=== PATIENT | male | born 1960 | race Caucasian/White ===

== ENCOUNTER 2018-08-24 18:40 | Emergency (ER) | payer MEDICARE, SELFPAY ==
[2018-08-24 18:44] VITALS: BP 144/89; PULSE 99; RESP 20; TEMP 36.9; O2SAT 99
--- NOTE | 2018-08-24 19:05 | DI.RAD_ITS ---
SYMPTOMS/DIAGNOSIS: BILATERAL RIB PAIN CHEST X-RAY, PA AND LATERAL: Comparison chest x-rays dating back to 05/12/13 were reviewed. There was also comparison with a CT scan of the chest from 05/28/15. The heart size and pulmonary vasculature appear stable and within normal limits. The left hilum appears unchanged compared with prior chest x-rays and the CT scan from 05/28/15. The lungs show no acute infiltrates, effusions or pneumothoraces. There are old healed left rib fractures present. Degenerative changes are seen in the spine. IMPRESSION: No acute pulmonary process.
--- NOTE | 2018-08-24 19:05 | DI.CT_ITS ---
SYMPTOMS/DIAGNOSIS: PAIN AT TOP OF PREVIOUS FUSION CT SCAN OF THE LUMBAR SPINE: Multiple contiguous axial images of the lumbar spine were obtained. Sagittal and coronal reformatted images were evaluated on the Siemens workstation. Comparison x-rays of the pelvis are 05/02/16 and 11/12/15. Comparison x-ray of the abdomen is 07/12/14. There are postsurgical changes with posterior fusion extending from L3 through S1. Posterior rods and pedicle screws are seen. Postlaminectomy changes are seen at L3 through L5. The right pedicle screw at L3 appears to break the cortical surface of the superior endplate of L3. Compression deformities are seen at L2 and L3. These appear present on the x- ray of the lumbar spine from 07/12/14 and the x-ray of the pelvis from 05/02/16. There does appear to be a vertical lucency in the right and inferior aspect of the L3 vertebral body (series 8 image 48 and series 7 image 23). An acute fracture cannot be excluded. No other findings to suggest an acute fracture or dislocation are seen in the lumbar spine. 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 Vacuum discs are seen at L1-L2 and L2-L3. These are present on the x-ray of the abdomen from 07/12/14 and are unchanged. Bilateral neural foraminal narrowing and central spinal canal narrowing are seen at L1-L2 and L2-L3. There is calcification of the abdominal aorta noted but no aneurysmal dilatation is seen in the visualized portions. No soft tissue masses appreciated. There is some asymmetry of the paraspinal soft tissues at the L2 level on the left. This is nonspecific. Inflammatory response or trauma cannot be excluded. IMPRESSION: 1. Lucency seen in the right and inferior aspect of the L3 vertebral body with irregularity of the inferior endplate and an acute fracture cannot be excluded. 2. Posterior spinal fusion from L3 through S1. The right L3 pedicle screw appears to break through the cortical surface of the superior endplate. This is age indeterminate. 3. Asymmetric soft tissue at the L2 vertebral body. This is nonspecific.
--- NOTE | 2018-08-24 19:06 | W.ED.GENAD ---
Discharge Plan Disposition Patient Disposition: HOME Discharge Details Chief Complaint: Nk/Back Pain Clinical Impression: Failed hardware, Failure of spinal fusion, Spinal fracture Primary Care Provider: [facility] ED Provider: Jose Daniel Quesada Home Meds and New Rx's Prescriptions: Continue omeprazole 20 MG capsule,delayed release(DR/EC) 20 mg PO BID RF: 0 sildenafil [Viagra] 100 MG tablet 100 mg PO PRN PRNRF: 0 albuterol sulfate [ProAir HFA] 8.5 GM HFA aerosol inhaler 2 puff Inhalation .BID PRN RF: 0 lisinopril 5 MG tablet 20 mg PO DAILY RF: 0 aspirin [Aspir-81] 81 MG tablet,delayed release (DR/EC) 81 mg PO DAILY RF: 0 hydromorphone [Dilaudid] 2 MG tablet 4 mg PO Q6H PRN PRNRF: 0 pregabalin [Lyrica] 50 MG capsule 100 mg PO DAILY RF: 0 doxycycline hyclate [Doryx] 100 MG tablet,delayed release (DR/EC) 100 mg PO DAILY RF: 0 hydroxyzine HCl 25 mg Tablet 25 mg PO TID RF: 0 olanzapine [Zyprexa] 5 MG tablet 5 mg PO DAILY RF: 0 simvastatin 20 MG tablet 20 mg PO QPM RF: 0 docusate sodium [Stool Softener] 250 MG capsule 250 mg PO BID RF: 0 Discharge Instructions Additional Instructions: Please limit your activities until you are able to follow-up with a spinal specialist. Do not perform any activities that worsen pain. Please follow-up with neurosurgery at [facility]. Call for an appointment: . Please contact your primary care physician to arrange follow-up. Return to the ER for any worsening or new concerning symptoms. Referrals: [facility] [Primary Care Provider] - Discharge Data Discharge Date/Time-TO BE ENTERED AT DEPARTURE: 08/24/18 22:31 Medical Decision Making <Ellis Mendoza MD - Last Filed: 08/25/18 20:00> 58-year-old male with chronic low back pain, status post lumbar fusion in the early . He presents stating of the abrupt onset of lumbar pain and subsequent bilateral rib pain after arching his back this morning. Not have incontinence, motor weakness, numbness or tingling. He is ambulatory as per routine with a walker. Patient has mildly elevated pulse, his exam is otherwise notable for tenderness in the midline of the lumbar spine just above the previous surgical repair. Differential diagnosis includes scar tissue disruption, acute exacerbation of chronic back pain, fracture or bony compression above the previous fixation. He has history of osteopenia and previous occult rib fractures. Therefore, patient referred for chest x-ray to rule out occult rib fracture as well as CT of the lumbar spine to evaluate for fracture or hardware disruption. He is given parenteral analgesia <Jose Daniel Quesada MD - Last Filed: 08/24/18 22:12> Chest x-ray interpreted by radiology: Old left-sided rib fractures and rib deformities noted, left retrocardiac opacities could represent atelectasis or infection. CT of the lumbar spine interpreted by radiology: There is posterior fusion of L3-S1. The right L3 screw appears to break through the superior endplate cortex. In absence of prior imaging, I cannot determine if this is acute or chronic finding. There is an age-indeterminate compression deformity involving the vertebral body L2. Gas is noted in the disc space above and below L2 vertebral body. This can be seen secondary to vacuum phenomena or infection in the appropriate clinical setting. Endplate irregularities are noted. Discitis osteomyelitis is not excluded. There is asymmetric paraspinal soft tissue prominence on the left, incompletely imaged. A paraspinal psoas hematoma or infection is not excluded. There is irregularity within the right iliac bone iliac wing which could represent a sequelae of old trauma or bone harvesting. Areas of disc space narrowing central canal stenosis and bilateral neuroforaminal narrowing. Disc bulges. Patient reassessed. He has no cough or fever. Symptoms were sudden onset today as noted by Dr. Mendoza. Patient notes no new neuro deficits and denies any new numbness, weakness, tingling, or bowel or bladder dysfunction today. Pain is well controlled and at his baseline. Orthopedics at [facility] not available for consultation. I called and spoke with spinal surgeon recreation facility manager at [facility], Dr. Castañeda. I sent CT images for review and described radiology findings as reported to me. I reviewed the patient history and presentation. After reviewing CT, Dr. Castañeda recommended discharge with outpatient follow-up in clinic. I reviewed results and discuss treatment plan with the patient. Patient understands importance of timely follow-up. He also understands he should return to the ER immediately should he have any new or worsening concerning symptoms. HPI <Ellis Mendoza MD - Last Filed: 08/25/18 20:00> General Mode of arrival: ambulatory. Date/Time Provider Initiated Documentation: 08/24/18 18:41. Limitations to Documentation: no limitations. Information obtained by: patient. History of Present Illness 58 year old M presents to the emergency department with the chief complaint of Back pain, described as severe, Quality is described as aching, and is localized to the back. Patient reports no radiation. Patient started experiencing this hour(s) and it has been constant. Medication improves symptom(s), Patient notes chest pain; denies shortness of breath. HPI Narrative: 58-year-old male presents from home complaining of the abrupt onset of mid line lumbar pain at the top of previous fusion. He states he arched his back while sitting in his recliner and had abrupt onset of a pop and persistent, constant, severe pain that is nonradiating. It is also associated with bilateral rib discomfort that is worse with movement and similar to previous fractures patient does not have shortness of breath. He recently has been well. He denies numbness, tingling, weakness. Related Data Home Medications Medication Instructions Recorded Confirmed omeprazole 20 mg PO BID 01/04/13 08/24/18 albuterol sulfate [ProAir HFA] 2 puff INHALATION .BID PRN 05/12/13 08/24/18 sildenafil [Viagra] 100 mg PO PRN PRN 05/12/13 08/24/18 lisinopril 20 mg PO DAILY 08/16/13 08/24/18 aspirin [Aspir-81] 81 mg PO DAILY 09/18/14 08/24/18 hydromorphone [Dilaudid] 4 mg PO Q6H PRN PRN 02/17/15 08/24/18 pregabalin [Lyrica] 100 mg PO DAILY 06/23/15 08/24/18 docusate sodium [Stool Softener] 250 mg PO BID 05/29/17 08/24/18 olanzapine [Zyprexa] 5 mg PO DAILY 05/29/17 08/24/18 simvastatin 20 mg PO QPM 05/29/17 08/24/18 doxycycline hyclate [Doryx] 100 mg PO DAILY 10/12/17 08/24/18 hydroxyzine HCl 25 mg PO TID 08/24/18 08/24/18 Allergies Allergy/AdvReac Type Severity Reaction Status Date / Time morphine AdvReac Severe Psychosis Unverified 08/24/18 18:50 codeine [Codeine] AdvReac Intermediate Nausea Unverified 08/24/18 18:50 gabapentin AdvReac Mild dries his Unverified 08/24/18 18:50 eyes and mouth too much General Stated Complaint: Nk/Back Pain GIANFRANCO: 3 Review of Systems <Ellis Mendoza MD - Last Filed: 08/25/18 20:00> Review of Systems 8 systems reviewed and otherwise neg Exam <Ellis Mendoza MD - Last Filed: 08/25/18 20:00> Narrative Exam Narrative: GEN: awake, alert, oriented 3. Pleasant, well groomed, interactive. HEAD: Normocephalic, atraumatic ENT: Mucous membranes moist, oropharynx unremarkable, External ear exam unremarkable EYES: PERRL, EOMI NECK: Full ROM, no BA, no menigismus CHEST/RESP: Nontender, clear to auscultation bilateral, no wheeze/rhonchi/rales CARDIOVASCULAR: RRR, no murmur, rub alesha. 2+ Rad pulse bilateral ABDOMEN: Soft, nontender, no mass. +Bowel sounds BACK: Lumbar midline healed surgical incision with point tenderness present at top of previous repair. EXT: Full ROM, no edema, no rash. Sensation intact including saddle distribution Neuro: Grossly normal neurologic exam, conversant, interactive. Psych: Speech fluent, thoughts congruent, affect normal Course <Ellis Mendoza MD - Last Filed: 08/25/18 20:00> Vital Signs Temperature 36.9 C 08/24/18 18:44 Pulse 99 H 08/24/18 18:44 Respiratory Rate 20 08/24/18 18:44 Blood Pressure 144/89 H 08/24/18 18:44 Pulse Oximetry 99 08/24/18 18:44 Temperature 36.9 C 08/24/18 18:44 Temperature Source Temporal Artery Scan 08/24/18 18:44 Pulse 99 H 08/24/18 18:44 Respiratory Rate 20 08/24/18 18:44 Respiratory Effort 08/24/18 18:44 Blood Pressure 144/89 H 08/24/18 18:44 Blood Pressure Position Sitting 08/24/18 18:44 Pulse Oximetry 99 08/24/18 18:44 Oxygen Delivery Method Room Air 08/24/18 18:44 Oxygen Flow Rate 0 08/24/18 18:44 Pain Level 10 08/24/18 18:48 Sign Out <Ellis Mendoza MD - Last Filed: 08/25/18 20:00> Sign Out Data: Sign Out Comment: Please followup CT and XR result Last updated by Ellis Mendoza MD at 08/24/18 19:48
--- NOTE | 2018-08-24 19:12 | ED.GENADUL_ITS ---
Discharge Plan Disposition Patient Disposition: HOME Discharge Details Chief Complaint: Nk/Back Pain Clinical Impression: Failed hardware, Failure of spinal fusion, Spinal fracture Primary Care Provider: [facility] ED Provider: Jose Daniel Quesada Home Meds and New Rx's Prescriptions: Continue omeprazole 20 MG capsule,delayed release(DR/EC) 20 mg PO BID RF: 0 sildenafil [Viagra] 100 MG tablet 100 mg PO PRN PRNRF: 0 albuterol sulfate [ProAir HFA] 8.5 GM HFA aerosol inhaler 2 puff Inhalation .BID PRN RF: 0 lisinopril 5 MG tablet 20 mg PO DAILY RF: 0 aspirin [Aspir-81] 81 MG tablet,delayed release (DR/EC) 81 mg PO DAILY RF: 0 hydromorphone [Dilaudid] 2 MG tablet 4 mg PO Q6H PRN PRNRF: 0 pregabalin [Lyrica] 50 MG capsule 100 mg PO DAILY RF: 0 doxycycline hyclate [Doryx] 100 MG tablet,delayed release (DR/EC) 100 mg PO DAILY RF: 0 hydroxyzine HCl 25 mg Tablet 25 mg PO TID RF: 0 olanzapine [Zyprexa] 5 MG tablet 5 mg PO DAILY RF: 0 simvastatin 20 MG tablet 20 mg PO QPM RF: 0 docusate sodium [Stool Softener] 250 MG capsule 250 mg PO BID RF: 0 Discharge Instructions Additional Instructions: Please limit your activities until you are able to follow-up with a spinal specialist. Do not perform any activities that worsen pain. Please follow-up with neurosurgery at [facility]. Call for an appointment: . Please contact your primary care physician to arrange follow-up. Return to the ER for any worsening or new concerning symptoms. Referrals: [facility] [Primary Care Provider] - Discharge Data Discharge Date/Time-TO BE ENTERED AT DEPARTURE: 08/24/18 22:31 Medical Decision Making <Ellis Mendoza MD - Last Filed: 08/25/18 20:00> 58-year-old male with chronic low back pain, status post lumbar fusion in the early . He presents stating of the abrupt onset of lumbar pain and subsequent bilateral rib pain after arching his back this morning. Not have incontinence, motor weakness, numbness or tingling. He is ambulatory as per routine with a walker. Patient has mildly elevated pulse, his exam is otherwise notable for tenderness in the midline of the lumbar spine just above the previous surgical repair. Differential diagnosis includes scar tissue disruption, acute exacerbation of chronic back pain, fracture or bony compression above the previous fixation. He has history of osteopenia and previous occult rib fractures. Therefore, patient referred for chest x-ray to rule out occult rib fracture as well as CT of the lumbar spine to evaluate for fracture or hardware disruption. He is given parenteral analgesia <Jose Daniel Quesada MD - Last Filed: 08/24/18 22:12> Chest x-ray interpreted by radiology: Old left-sided rib fractures and rib deformities noted, left retrocardiac opacities could represent atelectasis or infection. CT of the lumbar spine interpreted by radiology: There is posterior fusion of L3 -S1. The right L3 screw appears to break through the superior endplate cortex. In absence of prior imaging, I cannot determine if this is acute or chronic finding. There is an age-indeterminate compression deformity involving the vertebral body L2. Gas is noted in the disc space above and below L2 vertebral body. This can be seen secondary to vacuum phenomena or infection in the appropriate clinical setting. Endplate irregularities are noted. Discitis osteomyelitis is not excluded. There is asymmetric paraspinal soft tissue prominence on the left, incompletely imaged. A paraspinal psoas hematoma or infection is not excluded. There is irregularity within the right iliac bone iliac wing which could represent a sequelae of old trauma or bone harvesting. Areas of disc space narrowing central canal stenosis and bilateral neuroforaminal narrowing. Disc bulges. Patient reassessed. He has no cough or fever. Symptoms were sudden onset today as noted by Dr. Mendoza. Patient notes no new neuro deficits and denies any new numbness, weakness, tingling, or bowel or bladder dysfunction today. Pain is well controlled and at his baseline. Orthopedics at [facility] not available for consultation. I called and spoke with spinal surgeon automation control technician at [place], Dr. Castañeda. I sent CT images for review and described radiology findings as reported to me. I reviewed the patient history and presentation. After reviewing CT, Dr. Castañeda recommended discharge with outpatient follow-up in clinic. I reviewed results and discuss treatment plan with the patient. Patient understands importance of timely follow-up. He also understands he should return to the ER immediately should he have any new or worsening concerning symptoms. HPI <Ellis Mendoza MD - Last Filed: 08/25/18 20:00> General Mode of arrival: ambulatory . Date/Time Provider Initiated Documentation: 08/24/18 18:41 . Limitations to Documentation: no limitations . Information obtained by: patient . History of Present Illness 58 year old M presents to the emergency department with the chief complaint of Back pain, described as severe, Quality is described as aching, and is localized to the back. Patient reports no radiation. Patient started experiencing this hour(s) and it has been constant. Medication improves symptom(s), Patient notes chest pain; denies shortness of breath. HPI Narrative: 58-year-old male presents from home complaining of the abrupt onset of mid line lumbar pain at the top of previous fusion. He states he arched his back while sitting in his recliner and had abrupt onset of a pop and persistent, constant, severe pain that is nonradiating. It is also associated with bilateral rib discomfort that is worse with movement and similar to previous fractures patient does not have shortness of breath. He recently has been well. He denies numbness, tingling, weakness. Related Data Home Medications Medication Instructions Recorded Confirmed omeprazole 20 mg PO BID 01/04/13 08/24/18 albuterol sulfate [ProAir HFA] 2 puff INHALATION .BID PRN 05/12/13 08/24/18 sildenafil [Viagra] 100 mg PO PRN PRN 05/12/13 08/24/18 lisinopril 20 mg PO DAILY 08/16/13 08/24/18 aspirin [Aspir-81] 81 mg PO DAILY 09/18/14 08/24/18 hydromorphone [Dilaudid] 4 mg PO Q6H PRN PRN 02/17/15 08/24/18 pregabalin [Lyrica] 100 mg PO DAILY 06/23/15 08/24/18 docusate sodium [Stool Softener] 250 mg PO BID 05/29/17 08/24/18 olanzapine [Zyprexa] 5 mg PO DAILY 05/29/17 08/24/18 simvastatin 20 mg PO QPM 05/29/17 08/24/18 doxycycline hyclate [Doryx] 100 mg PO DAILY 10/12/17 08/24/18 hydroxyzine HCl 25 mg PO TID 08/24/18 08/24/18 Allergies Allergy/AdvReac Type Severity Reaction Status Date / Time morphine AdvReac Severe Psychosis Unverified 08/24/18 18:50 codeine [Codeine] AdvReac Intermediate Nausea Unverified 08/24/18 18:50 gabapentin AdvReac Mild dries his Unverified 08/24/18 18:50 eyes and mouth too much General Stated Complaint: Nk/Back Pain GIANFRANCO: 3 Review of Systems <Ellis Mendoza MD - Last Filed: 08/25/18 20:00> Review of Systems 8 systems reviewed and otherwise neg Exam <Ellis Mendoza MD - Last Filed: 08/25/18 20:00> Narrative Exam Narrative: GEN: awake, alert, oriented 3. Pleasant, well groomed, interactive. HEAD: Normocephalic, atraumatic ENT: Mucous membranes moist, oropharynx unremarkable, External ear exam unremarkable EYES: PERRL, EOMI NECK: Full ROM, no BA, no menigismus CHEST/RESP: Nontender, clear to auscultation bilateral, no wheeze/rhonchi/rales CARDIOVASCULAR: RRR, no murmur, rub alesha. 2+ Rad pulse bilateral ABDOMEN: Soft, nontender, no mass. +Bowel sounds BACK: Lumbar midline healed surgical incision with point tenderness present at top of previous repair. EXT: Full ROM, no edema, no rash. Sensation intact including saddle distribution Neuro: Grossly normal neurologic exam, conversant, interactive. Psych: Speech fluent, thoughts congruent, affect normal Course <Ellis Mendoza MD - Last Filed: 08/25/18 20:00> Vital Signs Temperature 36.9 C 08/24/18 18:44 Pulse 99 H 08/24/18 18:44 Respiratory Rate 20 08/24/18 18:44 Blood Pressure 144/89 H 08/24/18 18:44 Pulse Oximetry 99 08/24/18 18:44 Temperature 36.9 C 08/24/18 18:44 Temperature Source Temporal Artery Scan 08/24/18 18:44 Pulse 99 H 08/24/18 18:44 Respiratory Rate 20 08/24/18 18:44 Respiratory Effort 08/24/18 18:44 Blood Pressure 144/89 H 08/24/18 18:44 Blood Pressure Position Sitting 08/24/18 18:44 Pulse Oximetry 99 08/24/18 18:44 Oxygen Delivery Method Room Air 08/24/18 18:44 Oxygen Flow Rate 0 08/24/18 18:44 Pain Level 10 08/24/18 18:48 Sign Out <Ellis Mendoza MD - Last Filed: 08/25/18 20:00> Sign Out Data: Sign Out Comment: Please followup CT and XR result Last updated by Ellis Mendoza MD at 08/24/18 19:48
[2018-08-24] MEDS: HYDROmorphone 2 MG/ML VIAL IM (19:20)
--- NOTE | 2018-08-24 20:22 | DI.VRAD_ITS ---
EXAM: XR Chest, 2 Views EXAM DATE/TIME: 08/24/2018 7:46 PM CLINICAL HISTORY: 58 years old, male; Pain; Other: Bilat rib pain TECHNIQUE: XR of the chest, 2 views. COMPARISON: CR CHEST 2 VIEWS PA,LAT 10/12/2017 2:13 PM FINDINGS: Lungs: Seen only on the frontal radiograph are left retrocardiac opacities that could represent atelectasis or infection. Pleural space: Unremarkable. No pleural effusion. No pneumothorax. Heart/Mediastinum: No cardiomegaly. The mediastinal contours are unchanged. There is persistent asymmetric left hilar prominence which can be seen with prominent vascular structures or lymphadenopathy/lesion. If indicated, CT scan could be considered. Bones/joints: Skeletal degenerative changes. Old left-sided rib fractures and rib deformities are again seen. IMPRESSION: 1. Seen only on the frontal radiograph left retrocardiac opacities that could represent atelectasis or infection. 2. Old left-sided rib fractures and rib deformities are again seen. 3.There is persistent asymmetric left hilar prominence which can be seen with prominent vascular structures or lymphadenopathy/lesion. If indicated, contrast enhanced CT scan could be considered to further evaluate this or the patient's pain symptoms. 4. Other findings as above. Dictated and Authenticated by: Adwoa Blanco MD. Ordering:JACQUELINE COCNEPCION MD
--- NOTE | 2018-08-24 21:00 | DI.VRAD_ITS ---
EXAM: CT Lumbar Spine Without Intravenous Contrast EXAM DATE/TIME: 08/24/2018 7:07 PM CLINICAL HISTORY: 58 years old, male; Pain; Other: Pain at top of existing fusion; Prior surgery TECHNIQUE: Axial computed tomography images of the lumbar spine without intravenous contrast. Coronal and sagittal reformatted images were created and reviewed. COMPARISON: No relevant prior studies available. FINDINGS: Limitations: This is a compromised examination secondary to streak artifact and quantum mottle. Vertebrae: Skeletal degenerative changes are noted. Osteophytosis is seen. There is no definite listhesis. There is scoliosis. There is irregularity within the right iliac bone/iliac wing which could represent a sequela of old trauma or bone harvesting. Other types of abnormalities are not excluded. Correlation suggested. There is posterior fusion of L3-S1. The right L3 screw on series 8 image 47 appears to break through the superior endplate cortex. In the absence of prior imaging, I cannot determine if this is an acute or chronic finding. There is an age-indeterminate compression deformity involving vertebral body L2. Gas is noted in the disc space above and below the L2 vertebral body. This can be seen secondary to vacuum phenomenon or infection in the appropriate clinical setting. Endplate irregularities are noted. Discitis/osteomyelitis is not excluded. Discs/Spinal canal/Neural foramina: There is disc space narrowing at L1-2 and L2-3 with central canal stenosis and bilateral neuroforaminal narrowing. There is a disc osteophyte complex at L2-3. Disc bulges are also seen at L3-4, L4-5, and L5-S1. If the patient is symptomatic, MRI would be beneficial. Soft tissues: Vascular calcifications are seen. There is asymmetric paraspinal soft tissue prominence on the left, incompletely imaged (series 4 image 21). A paraspinal/psoas hematoma is not excluded. A dedicated CT scan of the abdomen and pelvis could be considered. IMPRESSION: 1. There is posterior fusion of L3-S1. The right L3 screw appears to break through the superior endplate cortex. In the absence of prior imaging, I cannot determine if this is an acute or chronic finding. 2. There is an age-indeterminate compression deformity involving vertebral body L2. Gas is noted in the disc space above and below the L2 vertebral body. This can be seen secondary to vacuum phenomenon or infection in the appropriate clinical setting. Endplate irregularities are noted. Discitis/osteomyelitis is not excluded. MRI could be considered. 3.There is asymmetric paraspinal soft tissue prominence on the left, incompletely imaged (series 4 image 21). A paraspinal/psoas hematoma or infection is not excluded. 4. There is irregularity within the right iliac bone/iliac wing which could represent a sequela of old trauma or bone harvesting. Other types of abnormalities are not excluded. Correlation suggested. 5. Areas of disc space narrowing, central canal stenosis, and bilateral neuroforaminal narrowing as described. Disc bulges as described. If the patient is symptomatic, MRI would be beneficial. Other findings as above. THIS REPORT CONTAINS FINDINGS THAT MAY BE CRITICAL TO PATIENT CARE. The findings were verbally communicated via telephone conference with Dr. Quesada at 8:59 PM EDT on 08/24/2018. The findings were acknowledged and understood. Dictated and Authenticated by: Adwoa Blanco MD. Ordering:JACQUELINE CONCEPCION MD
[2018-08-24 22:32] VITALS: BP 115/91; PULSE 90; RESP 18; TEMP 37.1; O2SAT 97
--- NOTE | 2018-08-27 08:34 | CMPROGNOTE_ITS ---
Care Management Progress Note 08/27-Dr. Cony Quesada requested PCP (NM) f/u gloria for failed spinal fusion, spinal fracture. Called [facility] this morning and he states he is calling his providers office, ( [facility]) for f/u appt. Once he gets his appt, he states he will call this CM back with a fax number to fax his ED reports to. Boogie has my contact information if further assistance is needed.
--- NOTE | 2018-08-27 17:42 | NUR.NOTE ---
Nursing Note: At the request of Neurology, [facility] I faxed to them the CT and xray reports. Also, the MD report. . Janet Larson
== END 2018-08-24 22:31 | disposition home or self-care (01) ==
PROVIDERS: Emergency Provider Student in an Organized Health Care Education/Training Program
DX: T84.216A Breakdown (mechanical) of internal fixation device of vertebrae, initial encounter (principal); R93.7 Abnormal findings on diagnostic imaging of other parts of musculoskeletal system; M43.27 Fusion of spine, lumbosacral region; Z98.1 Arthrodesis status; R07.81 Pleurodynia; X50.9XXA Other and unspecified overexertion or strenuous movements or postures, initial encounter; Y83.1 Surgical operation with implant of artificial internal device as the cause of abnormal reaction of the patient, or of later complication, without mention of misadventure at the time of the procedure; I10 Essential (primary) hypertension; E11.9 Type 2 diabetes mellitus without complications; Z79.4 Long term (current) use of insulin
CPT/HCPCS: 96372; 99284; 71046; 72131

== ENCOUNTER 2019-02-24 10:17 | Emergency (ER) | payer MEDICARE, SELFPAY ==
[2019-02-24 10:21] VITALS: BP 126/84; PULSE 85; RESP 16; TEMP 36.2; O2SAT 100
--- NOTE | 2019-02-24 10:31 | W.ED.GENAD ---
Discharge Plan Disposition Patient Disposition: HOME Condition: Stable Discharge Details Chief Complaint: Orthopedic Clinical Impression: Left wrist sprain Primary Care Provider: [place] ED Provider: Monique Brooks Home Meds and New Rx's Prescriptions: Continued omeprazole 20 MG capsule,delayed release(DR/EC) 20 mg PO BID RF: 0 sildenafil [Viagra] 100 MG tablet 100 mg PO PRN PRNRF: 0 albuterol sulfate [ProAir HFA] 8.5 GM HFA aerosol inhaler 2 puff Inhalation .BID PRN RF: 0 lisinopril 5 MG tablet 20 mg PO DAILY RF: 0 aspirin [Aspir-81] 81 MG tablet,delayed release (DR/EC) 81 mg PO DAILY RF: 0 hydromorphone [Dilaudid] 2 MG tablet 4 mg PO Q6H PRN PRNRF: 0 Lyrica 50 MG capsule 100 mg PO DAILY RF: 0 doxycycline hyclate [Doryx] 100 MG tablet,delayed release (DR/EC) 100 mg PO DAILY RF: 0 hydroxyzine HCl 25 mg Tablet 25 mg PO TID RF: 0 olanzapine [Zyprexa] 5 MG tablet 5 mg PO DAILY RF: 0 simvastatin 20 MG tablet 20 mg PO QPM RF: 0 docusate sodium [Stool Softener] 250 MG capsule 250 mg PO BID RF: 0 Discharge Instructions Instructions: Wrist Sprain (ED) Additional Instructions: Encourage rest, ice, elevation. Continue with pain medication as previously prescribed. Continue with brace while pain persists. Keep upcoming appointment with primary care. Seek care urgenly once again with redness, warmth, increased pain, fevers/chills or other new/worsening symptoms. Referrals: [facility] [Primary Care Provider] - Medical Decision Making Patient is a RHD 58 year old male presenting today with c/c of atraumatic left wrist pain and swelling. Ambulates with walker, puts large amount of pressure on this area. He states that he noted discomfort and small amount of swelling yesterday but noted the swelling to be increased this morning. No erythema, warmth, drainage, break in the skin. Denies systemic illness such as fevers/chills, generalized arthralgias or myalgias. Has had surgery for fx repair with 3 plates places several years ago. Incision have healed well. He reports chronic ulnar sided hand tingling, states this has increased. 2 point intact on exam. Limited ROM but patient unclear if this is chronic. Plan to obtain XR. XR reviewed by radiologist: FINDINGS: Bones/joints: Plate and screw fixation distal radius and distal ulna. Fixation at the radiocarpal articulation. Diffuse bone demineralization. No acute fracture. Soft tissues: Soft tissue swelling medial to the distal ulna. IMPRESSION: 1. Plate and screw fixation distal radius and distal ulna. Fixation at the radiocarpal articulation. 2. Diffuse bone demineralization. 3. No acute fracture. 4. Soft tissue swelling medial to the distal ulna. Discussed findings iwth the patient. Advised likely overuse injury. Encouraged rest, ice, elevation. Fitted with splint. Advised on new/worsening symptoms and when to seek care urgently once again. All questions and concerns were addressed, he isin agreement with this plan. HPI General Mode of arrival: ambulatory (ambulates with walker at baseline). Date/Time Provider Initiated Documentation: 02/24/19 10:18. Limitations to Documentation: no limitations. Information obtained by: patient and RN notes reviewed. History of Present Illness 58 year old M presents to the emergency department with the chief complaint of atraumatic left wrist pain, described as moderate, with intensity rated at 8. Quality is described as aching, and is localized to the left and upper extremity. Patient reports no radiation. Patient started experiencing this day(s) (1) and it has been constant. Immobilization improves symptom(s), Movement worsens symptoms . Patient notes denies chest pain, cough, fever/chills, rash and weakness. Patient did receive the following treatments prior to arrival, other (hydromorphone) Related Data Home Medications Medication Instructions Recorded Confirmed omeprazole 20 mg PO BID 01/04/13 02/24/19 albuterol sulfate [ProAir HFA] 2 puff INHALATION .BID PRN 05/12/13 08/24/18 sildenafil [Viagra] 100 mg PO PRN PRN 05/12/13 02/24/19 lisinopril 20 mg PO DAILY 08/16/13 02/24/19 aspirin [Aspir-81] 81 mg PO DAILY 09/18/14 02/24/19 hydromorphone [Dilaudid] 4 mg PO Q6H PRN PRN 02/17/15 02/24/19 Lyrica 100 mg PO DAILY 06/23/15 02/24/19 docusate sodium [Stool Softener] 250 mg PO BID 05/29/17 02/24/19 olanzapine [Zyprexa] 5 mg PO DAILY 05/29/17 02/24/19 simvastatin 20 mg PO QPM 05/29/17 02/24/19 doxycycline hyclate [Doryx] 100 mg PO DAILY 10/12/17 02/24/19 hydroxyzine HCl 25 mg PO TID 08/24/18 02/24/19 Allergies Allergy/AdvReac Type Severity Reaction Status Date / Time morphine AdvReac Severe Psychosis Unverified 02/24/19 10:25 codeine [Codeine] AdvReac Intermediate Nausea Unverified 02/24/19 10:25 gabapentin AdvReac Mild dries his Unverified 02/24/19 10:25 eyes and mouth too much General Stated Complaint: Orthopedic GIANFRANCO: 4 Review of Systems Constitutional Reports as per HPI, Denies chills, Denies fever(s), Denies headache(s) and Denies weakness ENT Denies headache(s) and Denies neck pain Cardiovascular Reports as per HPI, Denies dyspnea and Denies dyspnea on exertion Respiratory Reports as per HPI, Denies cough, Denies dyspnea and Denies dyspnea on exertion Musculoskeletal Reports as per HPI, Denies myalgias, Reports joint swelling, Reports limited range of motion, Denies muscle cramps, Denies muscle weakness, Denies neck pain, Denies radiating pain into limb and Reports tingling (tingling ulnar side of hand, worse since swelling, chronic onset) Integumentary/Breasts Reports as per HPI, Denies rash and Denies wounds Neurologic Reports as per HPI, Denies headache(s), Reports tingling (tingling ulnar side of hand, worse since swelling, chronic onset), Denies paresthesias and Denies weakness [facility] Medical History Acne (Acute) Hip fracture (Acute) Mood changes (Acute) Osteopenia (Acute) Wrist fracture, closed (Acute) Wrist fracture, left (Acute) Anxiety (Chronic) High cholesterol (Chronic) Hypertension (Chronic) Social History Smoking/Tobacco Use Status: Current every day Alcohol Intake: never Drug use: Never Do you feel safe in your relationship?: Yes Exam Const General: cooperative, healthy appearing, comfortable, no acute distress, well developed and well groomed Nutritional Appearance: average body habitus and well nourished Orientation: alert and awake Resp Effort & Inspection: normal respiratory effort, able to speak in complete sentences and no respiratory distress Auscultation: clear to auscultation bilaterally Cardio Rate: regular rate Rhythm: regular rhythm Heart Sounds: S1 normal and S2 normal Skin General skin exam: no rashes or lesions noted and other (incisions healed well to ulnar, anterior and posterior wrist) Lesions: no lesions Rashes: no rashes Trauma: no lacerations or abrasions Neuro General: alert and awake Cognition: normal cognition Speech: speech normal Gait: normal gait Motor: muscle tone normal throughout Sensory Exam: no sensory deficits noted and normal double simultaneous stimulation Extrem Left upper extremity: normal capillary refill and wrist Details: tenderness, swelling and normal vascular exam; inspection abnormal, ROM abnormal, no unusual warmth (no erythema, warmth, break in skin), no ecchymosis, no crepitus, no foreign bodies and no deformity; ROM limited (FINDINGS: Bones/joints: See Soft Tissues Finding. Soft tissues: The soft ti), no cyanosis and joint enlargement noted (ulnar anterior welling, well defined region) Psych Appearance: grossly normal and well kempt Mental Status: mental status grossly normal Speech and Movement: speech and movement normal Course Vital Signs Temperature 36.2 C L 02/24/19 10:21 Pulse 85 02/24/19 10:21 Respiratory Rate 16 02/24/19 10:21 Blood Pressure 126/84 02/24/19 10:21 Pulse Oximetry 100 02/24/19 10:21 Temperature 36.2 C L 02/24/19 10:21 Temperature Source Skin 02/24/19 10:21 Pulse 85 02/24/19 10:21 Respiratory Rate 16 02/24/19 10:21 Respiratory Effort Non-Labored 02/24/19 10:23 Blood Pressure 126/84 02/24/19 10:21 Pulse Oximetry 100 02/24/19 10:21 Pain Level 8 02/24/19 10:21
--- NOTE | 2019-02-24 10:37 | ED.GENADUL_ITS ---
Discharge Plan Disposition Patient Disposition: HOME Condition: Stable Discharge Details Chief Complaint: Orthopedic Clinical Impression: Left wrist sprain Primary Care Provider: [place] [place] Provider: Monique Brooks Home Meds and New Rx's Prescriptions: Continued omeprazole 20 MG capsule,delayed release(DR/EC) 20 mg PO BID RF: 0 sildenafil [Viagra] 100 MG tablet 100 mg PO PRN PRNRF: 0 albuterol sulfate [ProAir HFA] 8.5 GM HFA aerosol inhaler 2 puff Inhalation .BID PRN RF: 0 lisinopril 5 MG tablet 20 mg PO DAILY RF: 0 aspirin [Aspir-81] 81 MG tablet,delayed release (DR/EC) 81 mg PO DAILY RF: 0 hydromorphone [Dilaudid] 2 MG tablet 4 mg PO Q6H PRN PRNRF: 0 Lyrica 50 MG capsule 100 mg PO DAILY RF: 0 doxycycline hyclate [Doryx] 100 MG tablet,delayed release (DR/EC) 100 mg PO DAILY RF: 0 hydroxyzine HCl 25 mg Tablet 25 mg PO TID RF: 0 olanzapine [Zyprexa] 5 MG tablet 5 mg PO DAILY RF: 0 simvastatin 20 MG tablet 20 mg PO QPM RF: 0 docusate sodium [Stool Softener] 250 MG capsule 250 mg PO BID RF: 0 Discharge Instructions Instructions: Wrist Sprain (ED) Additional Instructions: Encourage rest, ice, elevation. Continue with pain medication as previously prescribed. Continue with brace while pain persists. Keep upcoming appointment with primary care. Seek care urgenly once again with redness, warmth, increased pain, fevers/chills or other new/worsening symptoms. Referrals: [place] [Primary Care Provider] - Medical Decision Making Patient is a RHD 58 year old male presenting today with c/c of atraumatic left wrist pain and swelling. Ambulates with walker, puts large amount of pressure on this area. He states that he noted discomfort and small amount of swelling yesterday but noted the swelling to be increased this morning. No erythema, warmth, drainage, break in the skin. Denies systemic illness such as fevers/chills, generalized arthralgias or myalgias. Has had surgery for fx repair with 3 plates places several years ago. Incision have healed well. He reports chronic ulnar sided hand tingling, states this has increased. 2 point intact on exam. Limited ROM but patient unclear if this is chronic. Plan to obtain XR. XR reviewed by radiologist: FINDINGS: Bones/joints: Plate and screw fixation distal radius and distal ulna. Fixation at the radiocarpal articulation. Diffuse bone demineralization. No acute fracture. Soft tissues: Soft tissue swelling medial to the distal ulna. IMPRESSION: 1. Plate and screw fixation distal radius and distal ulna. Fixation at the radiocarpal articulation. 2. Diffuse bone demineralization. 3. No acute fracture. 4. Soft tissue swelling medial to the distal ulna. Discussed findings iwth the patient. Advised likely overuse injury. Encouraged rest, ice, elevation. Fitted with splint. Advised on new/worsening symptoms and when to seek care urgently once again. All questions and concerns were addressed, he isin agreement with this plan. HPI General Mode of arrival: ambulatory (ambulates with walker at baseline) . Date/Time Provider Initiated Documentation: 02/24/19 10:18 . Limitations to Documentation: no limitations . Information obtained by: patient and RN notes reviewed . History of Present Illness 58 year old M presents to the emergency department with the chief complaint of atraumatic left wrist pain, described as moderate, with intensity rated at 8. Quality is described as aching, and is localized to the left and upper extremity. Patient reports no radiation. Patient started experiencing this day(s) (1) and it has been constant. Immobilization improves symptom(s), Movement worsens symptoms . Patient notes denies chest pain, cough, fever/chills, rash and weakness. Patient did receive the following treatments prior to arrival, other (hydromorphone) Related Data Home Medications Medication Instructions Recorded Confirmed omeprazole 20 mg PO BID 01/04/13 02/24/19 albuterol sulfate [ProAir HFA] 2 puff INHALATION .BID PRN 05/12/13 08/24/18 sildenafil [Viagra] 100 mg PO PRN PRN 05/12/13 02/24/19 lisinopril 20 mg PO DAILY 08/16/13 02/24/19 aspirin [Aspir-81] 81 mg PO DAILY 09/18/14 02/24/19 hydromorphone [Dilaudid] 4 mg PO Q6H PRN PRN 02/17/15 02/24/19 Lyrica 100 mg PO DAILY 06/23/15 02/24/19 docusate sodium [Stool Softener] 250 mg PO BID 05/29/17 02/24/19 olanzapine [Zyprexa] 5 mg PO DAILY 05/29/17 02/24/19 simvastatin 20 mg PO QPM 05/29/17 02/24/19 doxycycline hyclate [Doryx] 100 mg PO DAILY 10/12/17 02/24/19 hydroxyzine HCl 25 mg PO TID 08/24/18 02/24/19 Allergies Allergy/AdvReac Type Severity Reaction Status Date / Time morphine AdvReac Severe Psychosis Unverified 02/24/19 10:25 codeine [Codeine] AdvReac Intermediate Nausea Unverified 02/24/19 10:25 gabapentin AdvReac Mild dries his Unverified 02/24/19 10:25 eyes and mouth too much General Stated Complaint: Orthopedic GIANFRANCO: 4 Review of Systems Constitutional Reports as per HPI, Denies chills, Denies fever(s), Denies headache(s) and Denies weakness ENT Denies headache(s) and Denies neck pain Cardiovascular Reports as per HPI, Denies dyspnea and Denies dyspnea on exertion Respiratory Reports as per HPI, Denies cough, Denies dyspnea and Denies dyspnea on exertion Musculoskeletal Reports as per HPI, Denies myalgias, Reports joint swelling, Reports limited range of motion, Denies muscle cramps, Denies muscle weakness, Denies neck pain, Denies radiating pain into limb and Reports tingling (tingling ulnar side of hand, worse since swelling, chronic onset) Integumentary/Breasts Reports as per HPI, Denies rash and Denies wounds Neurologic Reports as per HPI, Denies headache(s), Reports tingling (tingling ulnar side of hand, worse since swelling, chronic onset), Denies paresthesias and Denies weakness [facility] Medical History Acne (Acute) Hip fracture (Acute) Mood changes (Acute) Osteopenia (Acute) Wrist fracture, closed (Acute) Wrist fracture, left (Acute) Anxiety (Chronic) High cholesterol (Chronic) Hypertension (Chronic) Social History Smoking/Tobacco Use Status: Current every day Alcohol Intake: never Drug use: Never Do you feel safe in your relationship?: Yes Exam Const General: cooperative, healthy appearing, comfortable, no acute distress, well developed and well groomed Nutritional Appearance: average body habitus and well nourished Orientation: alert and awake Resp Effort & Inspection: normal respiratory effort, able to speak in complete sentences and no respiratory distress Auscultation: clear to auscultation bilaterally Cardio Rate: regular rate Rhythm: regular rhythm Heart Sounds: S1 normal and S2 normal Skin General skin exam: no rashes or lesions noted and other (incisions healed well to ulnar, anterior and posterior wrist) Lesions: no lesions Rashes: no rashes Trauma: no lacerations or abrasions Neuro General: alert and awake Cognition: normal cognition Speech: speech normal Gait: normal gait Motor: muscle tone normal throughout Sensory Exam: no sensory deficits noted and normal double simultaneous stimulation Extrem Left upper extremity: normal capillary refill and wrist Details: tenderness, swelling and normal vascular exam; inspection abnormal, ROM abnormal, no unusual warmth (no erythema, warmth, break in skin), no ecchymosis, no crepitus, no foreign bodies and no deformity; ROM limited (FINDINGS: Bones/joints: See Soft Tissues Finding. Soft tissues: The soft ti), no cyanosis and joint enlargement noted (ulnar anterior welling, well defined region) Psych Appearance: grossly normal and well kempt Mental Status: mental status grossly normal Speech and Movement: speech and movement normal Course Vital Signs Temperature 36.2 C L 02/24/19 10:21 Pulse 85 02/24/19 10:21 Respiratory Rate 16 02/24/19 10:21 Blood Pressure 126/84 02/24/19 10:21 Pulse Oximetry 100 02/24/19 10:21 Temperature 36.2 C L 02/24/19 10:21 Temperature Source Skin 02/24/19 10:21 Pulse 85 02/24/19 10:21 Respiratory Rate 16 02/24/19 10:21 Respiratory Effort Non-Labored 02/24/19 10:23 Blood Pressure 126/84 02/24/19 10:21 Pulse Oximetry 100 02/24/19 10:21 Pain Level 8 02/24/19 10:21
--- NOTE | 2019-02-24 10:50 | DI.RAD_ITS ---
SYMPTOMS/DIAGNOSIS: ATRAUMATIC SWELLING ALONG ULNAR ASPECT LEFT WRIST: Five views. No priors. There are post surgical changes with sideplate and screws of the distal left radius and ulna. Radial carpal fixation is also noted. No evidence of hardware failure is seen. No lucencies are seen in or about the orthopedic hardware noted. No acute fracture or dislocation is seen. There is soft tissue swelling about the wrist particularly at the ulnar aspect. The bones appear osteopenic. Degenerative changes are seen at the first carpal metacarpal joint. IMPRESSION: 1. Soft tissue swelling about the wrist particularly at the ulnar aspect. 2. No acute fracture or dislocation.
--- NOTE | 2019-02-24 11:38 | DI.VRAD_ITS ---
EXAM: XR Left Wrist Complete, 3 or more Views EXAM DATE/TIME: 02/24/2019 10:31 AM CLINICAL HISTORY: 58 years old, male; Pain; Wrist; Left; Prior surgery; Surgery date: 6+ months; Additional info: Patient uses walker. Expresses concern he pushes too hard with wrists. TECHNIQUE: Imaging protocol: XR Left wrist. Views: 3 or more views. COMPARISON: No relevant prior studies available. FINDINGS: Bones/joints: Plate and screw fixation distal radius and distal ulna. Fixation at the radiocarpal articulation. Diffuse bone demineralization. No acute fracture. Soft tissues: Soft tissue swelling medial to the distal ulna. IMPRESSION: 1. Plate and screw fixation distal radius and distal ulna. Fixation at the radiocarpal articulation. 2. Diffuse bone demineralization. 3. No acute fracture. 4. Soft tissue swelling medial to the distal ulna. Dictated and Authenticated by: Diana Tony MD. Ordering:WILLY Amaya MD
== END 2019-02-24 12:15 | disposition home or self-care (01) ==
PROVIDERS: Emergency Provider Physician Assistant
DX: S63.502A Unspecified sprain of left wrist, initial encounter (principal); X50.9XXA Other and unspecified overexertion or strenuous movements or postures, initial encounter
CPT/HCPCS: 29125; 99283; 73110; 99282; L3908

== ENCOUNTER 2020-03-25 09:30 | Emergency (ER) | payer MEDICARE, SELFPAY ==
[2020-03-25 09:35] VITALS: BP 129/78; PULSE 78; RESP 20; TEMP 36.8; O2SAT 96
--- NOTE | 2020-03-25 10:00 | DI.RAD_ITS ---
EXAM: XR CHEST 2V PA LATERAL CLINICAL HISTORY: cough TECHNIQUE: 2D digital imaging was performed. COMPARISON: No exams were available for comparison FINDINGS: MEDIASTINUM: Normal. HEART: Normal. PULMONARY VASCULATURE: Normal. LUNGS: Clear. PLEURAL SPACE: No pleural effusion or pneumothorax. Bones: Old left upper rib fractures. Degenerative disc changes in the spine. OTHER FINDINGS:Normal. IMPRESSION: No acute pulmonary findings. DATA REPOSITORY: RADIATION DOSE DELIVERED:
[2020-03-25 10:21] LABS: Abs Immature Grans 0.03 k/cumm (0.0-0.09); Absolute Basophil Count 0.03 k/cumm (0.0-0.2); Absolute Eosinophil Count 0.18 k/cumm (0.0-0.7); Absolute Lymphocyte Count 2.32 k/cumm (1.2-3.4); Absolute Monocyte Count 0.73 k/cumm (0.11-0.7); Absolute Neutrophil Count 6.06 k/cumm (1.2-6.7); Basophils % 0.3; Eosinophils % 1.9; HCT 44.1 % (40.0-50.0); HGB 15.1 g/dL (13.5-17.5); Immature Grans % 0.3 %; Lymphocytes % 24.8; Mean Corp. HGB Concentration 34.2 g/dL (32.0-36.0); Mean Corpuscular Hemoglobin 29.3 pg (27.0-33.0); Mean Corpuscular Volume 85.5 fL (80-95); Mean Platelet Volume 9.7 fL (8.0-11.0); Monocytes % 7.8; Neutrophils % 64.9; Platelet Count 254 x1000/uL (130-400); RBC 5.16 m/cumm (4.50-6.00); RBC Distribution Width 13.8 % (11.8-14.1); White Blood Cell Count 9.35 k/cumm (4.4-10.8)
--- NOTE | 2020-03-25 10:34 | ED.GENADUL_ITS ---
Discharge Plan Disposition Patient Disposition: AGAINST MEDICAL ADVICE Condition: Stable Discharge Details Chief Complaint: Orthopedic Clinical Impression: Cervical radiculopathy, Chest pain Primary Care Provider: [facility],[place] ED Provider: Fiorella Lewis Home Meds and New Rx's Prescriptions: Continued omeprazole 20 MG capsule,delayed release(DR/EC) 20 mg PO BID RF: 0 sildenafil [Viagra] 100 MG tablet 100 mg PO PRN PRNRF: 0 albuterol sulfate [ProAir HFA] 8.5 GM HFA aerosol inhaler 2 puff Inhalation .BID PRN RF: 0 lisinopril 5 MG tablet 20 mg PO DAILY RF: 0 aspirin [Aspir-81] 81 MG tablet,delayed release (DR/EC) 81 mg PO DAILY RF: 0 hydromorphone [Dilaudid] 2 MG tablet 4 mg PO Q6H PRN PRNRF: 0 Lyrica 50 MG capsule 100 mg PO DAILY RF: 0 doxycycline hyclate [Doryx] 100 MG tablet,delayed release (DR/EC) 100 mg PO DAILY RF: 0 hydroxyzine HCl 25 mg Tablet 25 mg PO TID RF: 0 olanzapine [Zyprexa] 5 MG tablet 5 mg PO DAILY RF: 0 simvastatin 20 MG tablet 20 mg PO QPM RF: 0 docusate sodium [Stool Softener] 250 MG capsule 250 mg PO BID RF: 0 Discharge Instructions Instructions: Chest Pain (ED), Cervical Radiculopathy (ED) Additional Instructions: You are signing out AGAINST MEDICAL ADVICE. Please follow-up promptly with your [facility] doctor as discussed for your neck pain resulting in left arm numbness. Please speak with your [place] doctor regarding the chest pain you experienced although today's evaluation is reassuring I would recommend an outpatient stress test. Return for any worsening, concerns or alarming symptoms sooner if needed as discussed Medical Decision Making This is a 59-year-old patient presenting the emergency room for complaints of neck pain for the last 2 weeks. Patient is complaining of paresthesias through the entire left arm associated with global numbness in the left arm as well as intermittent paresthesia specifically numbness tingling through the left forearm and thumb. Patient does describe weakness when he is experiencing numbness and through the entire left arm. Patient reports these radicular symptoms are new in the last 2 weeks. Patient does have a history of 2 lumbar spine surgeries. Patient is concerned with the possibility of disc disease in his neck although has not had neck imaging in the past. Patient also describes an episode of chest pain which he noted today, nonexertional with no apparent diaphoresis, difficulty breathing with shortness of breath or wheezing. No associated nausea or vomiting. Episode lasted a few seconds then resolved. Patient has no personal history of KS however a very significant family history brother had a massive KS at 50 years old and father had KS and CHF. Patient was somewhat concerned with the possibility of numbness being related to his heart however has remained active in the last several weeks. On exam patient is very well- appearing at this time. Patient has no increase in respiratory effort. Vital signs are normal. Given patient's significant description of radicular symptoms into the left arm and complaints of neck pain neurologic exam performed which did reveal difficulty discriminating 2 points as well as inability to discriminate sharp versus dull in the left arm. Normal right arm exam. We will plan to obtain MRI of patient's cervical spine to rule out any cord impingement. We will also plan to rule out ACS given patient's recent complaints and family history. Patient agrees with this planof chest pain noted today. Care. Patient is a [facility] patient who can arrange for prompt follow-up if needed with the [facility]. Patient's initial labs are reassuring. Patient has no leukocytosis. Patient has a sodium of 133. Patient's initial troponin is normal. EKG reveals a heart rate of 95, sinus rhythm. No ST elevation KS. This was reviewed with Dr. Gage. Patient's repeat troponin is normal. Patient scheduled for MRI at 1145 however high-priority patient bumped his MRI. Patient will be imaged at 430. Patient is unwilling to stay for the remainder of his evaluation. Patient desires discharge home at this time. Patient is aware that his cardiac evaluation is reassuring however did recommend stress testing to be performed as an outpatient. Patient will [facility] with [facility] for outpatient stress testing given his family history of cardiac disease as well as complaints of resolved chest pain. Patient will follow-up for cervical concerns with PCP. Patient aware of risk and signing out AGAINST MEDICAL ADVICE without his MRI today including possible spinal cord injury or permanent disability including the possibility of . Patient is willing to assume this risk. We will follow-up promptly with his [facility] services. I had a discussion with the patient about my diagnostic/treatment plan. Patient declines plan and wishes to leave against medical advise. I reiterated my concerns to the patient and explained the risks of leaving prior to completion of workup and treatment. I specifically emphasized the possibility of life-threatening or lifestyle modifying disease that would no be appropriately treated if they leave. Patient verbalized understanding of my concerns and the potential for life threatening or lifestyle modifying disease. Patient has capacity to make informed decision. I again explained my concerns and urged the patient to stay for treatment as outlined. Patient continued to refuse. I then discussed potential less ideal alternatives to diagnostic/treatment plan as outlined and patiint refused. I recommended that the patient followup with primary care physician CORRINE or return to the Emergency Department at any timer for further treatment. HPI General Date/Time Provider Initiated Documentation: 03/25/20 09:38 . HPI Narrative: Is a 59-year-old patient presenting for complaints of neck pain which began approximately 2 weeks ago. Patient denies any traumatic injury involved. Patient reports his left arm has been going entirely numb. Patient does report intermittent numbness and tingling. Paresthesias associated involving the forearm and the first and second digit. Patient does report occasional weakness while experiencing global arm numbness. Patient reports neck pain is worse with range of motion specifically extension of the neck and flexion of the neck. Pain worse when rotating toward the left. Patient does report posterior and left-sided neck pain. Patient denies any headache or dizziness. Patient denies any ill feeling. Patient does report this morning he had an episode of transient left-sided chest pain but denies any diaphoresis, dizziness, tac hycardia, palpitations, difficulty breathing or shortness of breath or wheezing. Denies any fevers or chills recently. No cough. Patient does report a history of lumbar spinal surgery x2 in the past. Patient denies abdominal pain, nausea or vomiting. Patient does report he is continues to be quite active. Patient denies any exertional component of chest pain or noted shortness of breath when exerting recently. Patients care CVA. Patient is a smoker. Patient is a history of hypertension, history of kidney failure not on dialysis. Patient's family history includes a brother who had a massive KS at 50 and father who had KS and heart failure. Related Data Home Medications Medication Instructions Recorded Confirmed omeprazole 20 mg PO BID 01/04/13 02/24/19 albuterol sulfate [ProAir HFA] 2 puff INHALATION .BID PRN 05/12/13 08/24/18 sildenafil [Viagra] 100 mg PO PRN PRN 05/12/13 02/24/19 lisinopril 20 mg PO DAILY 08/16/13 02/24/19 aspirin [Aspir-81] 81 mg PO DAILY 09/18/14 02/24/19 hydromorphone [Dilaudid] 4 mg PO Q6H PRN PRN 02/17/15 02/24/19 Lyrica 100 mg PO DAILY 06/23/15 02/24/19 docusate sodium [Stool Softener] 250 mg PO BID 05/29/17 02/24/19 olanzapine [Zyprexa] 5 mg PO DAILY 05/29/17 02/24/19 simvastatin 20 mg PO QPM 05/29/17 02/24/19 doxycycline hyclate [Doryx] 100 mg PO DAILY 10/12/17 02/24/19 hydroxyzine HCl 25 mg PO TID 08/24/18 02/24/19 Allergies Allergy/AdvReac Type Severity Reaction Status Date / Time morphine AdvReac Severe Psychosis Unverified 03/25/20 09:41 codeine [Codeine] AdvReac Intermediate Nausea Unverified 03/25/20 09:41 gabapentin AdvReac Mild dries his Unverified 03/25/20 09:41 eyes and mouth too much General Stated Complaint: Orthopedic GIANFRANCO: 3 Review of Systems All systems reviewed & are unremarkable except as noted in HPI and below PFSH Medical History Acne (Acute) Anxiety (Chronic) Fracture of left leg (Acute) High cholesterol (Chronic) Hip fracture (Acute) Hip fracture, left (Acute) Hypertension (Chronic) Mood changes (Acute) Osteopenia (Acute) Wrist fracture, closed (Acute) Wrist fracture, left (Acute) 2012 Social History Smoking/Tobacco Use Status: Current every day Alcohol Intake: never Drug use: Never Do you feel safe in your relationship?: Yes Exam Narrative Exam Narrative: CONST: Healthy appearing patient, in no acute distress. Well hydrated. Alert and oriented. HENMT: Head nomocephalic, normal to inspection. Atraumatic. Hearing grossly normal. External ear canal no erythema or swelling. TM normal bilaterally. Nose normal to inspection. No rhinnorhea. Normal facial exam. Oral mucosa normal. Tounge normal. Dentition normal. Normal posterior oropharynx. Uvula midline. EYES: General normal appearance. Alignment normal. Eyelids normal. Conjunctiva normal. Sclera normal. PERRL. NECK: Normal visual inspection. FROM. No lymphadenopathy. Trachea midline. Posterior midline tenderness is noted of the cervical spine. Mild left-sided neck pain with palpation. CHEST: Normal insepection of the chest. RESP: Normal respiratory effort. Speaking full sentences. No cough. No wheezing. No retractions. Clear to auscaltation. Breath sound equal and present bilaterally. CARDIO: No JVD. Normal PMI. Regular Rate. Regular Rhythm. Normal peripheral pulses. GI: Normal inspection of abdomen. No distension. Soft. Nontender. Bowel sounds present in all 4 quadrants. No rebound. No gaurding. MUSCULOSKELETAL: Normal Gait. FROM of all extremities. Distal neurovascularly intact. Sensation intact distally. Left arm, full range of motion of the left arm. No focal pain with palpation. [employer] strength is intact. Pulses intact distally SKIN: Normal. Dry. No rashes. NEURO: Alert and awake. Speech clear. Left arm patient is unable to discriminate 2 points through the forearm and the hand. Patient has difficulty discerning sharp and dull in the left arm. right arm two-point discrimination without difficulty as well as sharp and dull intact. PSYCH: Normal affect. Cooperative. Course Vital Signs Vital signs: Vital Signs Temperature 36.8 C 03/25/20 09:35 Pulse 78 03/25/20 09:35 Respiratory Rate 03/25/20 09:35 Blood Pressure 129/78 03/25/20 09:35 Pulse Oximetry 96 03/25/20 09:35 Temperature 36.8 C 03/25/20 09:35 Temperature Source Skin 03/25/20 09:35 Pulse 78 03/25/20 09:35 Respiratory Rate 03/25/20 09:35 Respiratory Effort Non-Labored 03/25/20 09:43 Blood Pressure 129/78 03/25/20 09:35 Blood Pressure Position Sitting 03/25/20 09:35 Pulse Oximetry 96 03/25/20 09:35 Oxygen Delivery Method Room Air 03/25/20 09:35 Oxygen Flow Rate 0 03/25/20 09:35 Pain Level 10 03/25/20 09:35 Comment 03/25/20 09:35 Lab/Test Results Lab/Test Results: Laboratory Tests Range/Units 03/25/20 10:00 WBC (4.4-10.8) k/cumm 9.35 RBC (4.50-6.00) m/cumm 5.16 Hgb (13.5-17.5) g/dL 15.1 Hct (40.0-50.0) % 44.1 MCV (80-95) fL 85.5 MCH (27.0-33.0) pg 29.3 MCHC (32.0-36.0) g/dL 34.2 RDW (11.8-14.1) % 13.8 Plt Count (130-400) x1000/uL 254 MPV (8.0-11.0) fL 9.7 Immature Gran % % 0.3 Neutrophils % 64.9 Lymphocytes % 24.8 Monocytes % 7.8 Eosinophils % 1.9 Basophils % 0.3 Absolute Neutrophils (1.2-6.7) k/cumm 6.06 Absolute Lymphocytes (1.2-3.4) k/cumm 2.32 Absolute Monocytes (0.11-0.7) k/cumm 0.73 H Absolute Eosinophils (0.0-0.7) k/cumm 0.18 Absolute Basophils (0.0-0.2) k/cumm 0.03
[2020-03-25 10:39] LABS: ALT 25 U/L (16-63); AST 19 U/L (15-37); Albumin 3.7 g/dL (3.4-5.0); Alkaline Phosphatase 60 U/L (46-116); BUN 13 mg/dL (7-18); Bilirubin, Total 0.6 mg/dL (0.2-1.0); CREATININE 1.28 mg/dL (0.70-1.30); Calcium 9.4 mg/dL (8.5-10.1); Chloride 97 mmol/L (98-107); Estimated GFR 57.13 (mL/min/1.73m2); Glucose 149 mg/dL (74-106); Potassium 4.7 mmol/L (3.5-5.1); Sodium 133 mmol/L (136-145); Total Protein 7.9 g/dL (6.4-8.2); Troponin I < 0.05 ng/Ml (<0.06)
[2020-03-25 10:53] VITALS: BP 103/70; PULSE 87; RESP 18; TEMP 36.5; O2SAT 97
[2020-03-25 12:21] VITALS: BP 107/81; PULSE 91; RESP 20; TEMP 36.4; O2SAT 97
[2020-03-25 13:34] LABS: Troponin I < 0.05 ng/mL (<0.06)
[2020-03-25 14:47] VITALS: BP 103/63; PULSE 77; RESP 18; TEMP 36.7; O2SAT 97
== END 2020-03-25 15:00 | disposition left against medical advice (07) ==
PROVIDERS: Emergency Provider Physician Assistant
DX: M54.12 Radiculopathy, cervical region (principal); R07.9 Chest pain, unspecified; E87.1 Hypo-osmolality and hyponatremia; Z53.29 Procedure and treatment not carried out because of patient's decision for other reasons; Z82.49 Family history of ischemic heart disease and other diseases of the circulatory system; I12.9 Hypertensive chronic kidney disease with stage 1 through stage 4 chronic kidney disease, or unspecified chronic kidney disease; N18.9 Chronic kidney disease, unspecified
CPT/HCPCS: 36415; 36416; 80053; 82962; 93005; 99285; 71046; 84484; 85025; 93010

== ENCOUNTER 2020-11-02 10:39 | Emergency (ER) | payer MEDICARE, SELFPAY ==
--- NOTE | 2020-11-02 10:42 | W.ED.GENAD ---
Discharge Plan Disposition Patient Disposition: HOME Condition: Stable Discharge Details Clinical Impression: Acute exacerbation of chronic low back pain Primary Care Provider: [facility],[place] ED Provider: Shanice Gage Home Meds and New Rx's Prescriptions: Continued omeprazole 20 MG capsule,delayed release(DR/EC) 20 mg PO BID RF: 0 sildenafil [Viagra] 100 MG tablet 100 mg PO PRN PRNRF: 0 lisinopril 5 MG tablet 20 mg PO DAILY RF: 0 aspirin [Aspir-81] 81 MG tablet,delayed release (DR/EC) 81 mg PO DAILY RF: 0 hydromorphone [Dilaudid] 2 MG tablet 4 mg PO Q4H PRN PRNRF: 0 pregabalin [Lyrica] 50 MG capsule 100 mg PO DAILY RF: 0 doxycycline hyclate [Doryx] 100 MG tablet,delayed release (DR/EC) 100 mg PO DAILY RF: 0 hydroxyzine HCl 25 mg Tablet 25 mg PO TID RF: 0 olanzapine [Zyprexa] 5 MG tablet 5 mg PO DAILY RF: 0 simvastatin 20 MG tablet 20 mg PO QPM RF: 0 docusate sodium [Stool Softener] 250 MG capsule 250 mg PO BID RF: 0 cephalexin [Keflex] 500 mg Capsule 500 mg PO BID RF: 0 Discharge Instructions Instructions: Low Back Strain (ED) Additional Instructions: Alternate ice and heat to the affected area(s) several times daily for 20 minutes at a time. Take your regular medications as needed and directed for your pain. Follow-up with your regular doctors at the [place] and [facility]. Return immediately to the emergency department if you develop any worsening or new concerning symptoms. Discharge Data Discharge Date/Time-TO BE ENTERED AT DEPARTURE: 11/02/20 14:20 Discharge Physician: Shanice Gage Medical Decision Making 60-year-old male with a history of chronic back pain and former lumbar fusion, chronically on Dilaudid 4 times daily presents with worsening lower thoracic mid and right paraspinal pain after lifting a heavy bag of groceries 5 days ago. He has tenderness to palpation of his midline lower thoracic and right-sided lower thoracic paraspinal region. No evidence of trauma or cellulitis. He has no focal deficits. He is neurovascular intact. Will refer for CT thoracic and lumbar spine and give a dose of his Dilaudid. CT thoracic and lumbar spine no chronic changes and evidence of lumbar fusion but negative for acute findings. Patient reassessed and he feels better. Patient states his main concern was for follow-up considering his previous history of lumbar fusion. He has plenty of pain medication at home. Advised to follow up with the primary care doctor for re-evaluation. Usual and customary return precautions given prior to discharge. Medical Records Medical records reviewed: Yes I reviewed the patient's medical records. Imaging Data Radiologic Study: Radiologist's impression: CT THORACIC LUMBAR SPINE WO CLINICAL HISTORY: midline lower thoracic pain, r/o fx. TECHNIQUE: Imaging Protocol: Axial computed tomography images with coronal and sagittal reformatted images were created and reviewed COMPARISON: CT CT lumbar spine wo from 08/24/2018 FINDINGS: THORACIC SPINE: There is no evidence of fracture nor listhesis of the thoracic vertebral bodies. No lytic osseous lesions. Mild scoliosis convex left and multiple right-sided osteophytes are noted. There are no obvious disc herniations nor central spinal canal stenosis. No evidence of paraspinal mass. No fluid collection in the epidural and paraspinal regions. Multiple non healed left-sided rib fractures are noted. LUMBOSACRAL SPINE: Again noted is multilevel fusion L2-S1 with posterior fusion rods and bilateral intrapedicular screws at these levels. The patient hip of the intra pedicular screws relative to the superior endplates remains satisfactory and unchanged from the prior study of July 2018. Wedge compression fracture of L2 is again noted, unchanged. There is no evidence of acute lumbar vertebral fracture. There is no radiographic evidence of osteomyelitis. There is tight spinal canal stenosis at L2-3 level, similar to previous. Bone donor site in the right iliac bone is again noted. Sacroiliac joints unchanged. No new findings in the sacral canal IMPRESSION: 1. No evidence of thoracic spinal column fracture. 2. L3-S1 lumbar fusion again noted with multilevel bilateral intrapedicular screws and posterior fusion rods. There is no evidence of acute fracture thoracic spinal column. Chronic wedge fracture of L2 again noted appears unchanged July [address] scan. Hardware also appears unchanged. No new abnormal fluid collection both epidural and paraspinal. There is spinal canal stenosis again noted at L2-3 level which is 1 level above the fusion. ECG Data Attestation: I personally reviewed and interpreted this ECG (s) as follows: HPI General Mode of arrival: ambulatory. Date/Time Provider Initiated Documentation: 11/02/20 10:40. Limitations to Documentation: no limitations. Information obtained by: patient. HPI Narrative: Patient is a 60-year-old male with a history of chronic back pain and lumbar fusion who is chronically on hydromorphone 4 times daily for his chronic back pain presents with worsening right-sided lower back pain for the past 5 days after lifting a heavy bag of groceries at the grocery store. Patient states he last had a lumbar fusion in the . He states he is followed by the [place] and [facility] for his chronic pain. He states he was lifting a heavy bag of groceries at the store when he felt a sudden onset of right-sided mid back pain. He states he feels the pain is in his L3-4 region. He denies any bowel or bladder incontinence, fever, abdominal pain, saddle anesthesia, leg pain weakness or numbness. He states he is mainly here to rule out a vertebral fracture as he has pain medication at home and does not want to add any muscle relaxers to this. Related Data Home Medications Medication Instructions Recorded Confirmed omeprazole 20 mg PO BID 01/04/13 11/02/20 sildenafil [Viagra] 100 mg PO PRN PRN 05/12/13 11/02/20 lisinopril 20 mg PO DAILY 08/16/13 11/02/20 aspirin [Aspir-81] 81 mg PO DAILY 09/18/14 11/02/20 hydromorphone [Dilaudid] 4 mg PO Q4H PRN PRN 02/17/15 11/02/20 pregabalin [Lyrica] 100 mg PO DAILY 06/23/15 11/02/20 docusate sodium [Stool Softener] 250 mg PO BID 05/29/17 11/02/20 olanzapine [Zyprexa] 5 mg PO DAILY 05/29/17 11/02/20 simvastatin 20 mg PO QPM 05/29/17 11/02/20 doxycycline hyclate [Doryx] 100 mg PO DAILY 10/12/17 11/02/20 hydroxyzine HCl 25 mg PO TID 08/24/18 11/02/20 cephalexin [Keflex] 500 mg PO BID 11/02/20 11/02/20 Allergies Allergy/AdvReac Type Severity Reaction Status Date / Time morphine AdvReac Severe Psychosis Unverified 11/02/20 10:59 codeine [Codeine] AdvReac Intermediate Nausea Unverified 11/02/20 10:59 gabapentin AdvReac Mild dries his Unverified 11/02/20 10:59 eyes and mouth too much General GIANFRANCO: 3 Review of Systems All systems reviewed & are unremarkable except as noted in HPI and below Constitutional Constitutional: Reports as per HPI, Denies chills and Denies fever(s) Eyes Eyes: Denies blurry vision ENT Ears, Nose, Mouth, and Throat: Denies dizziness, Denies sore throat and Denies throat swelling Cardiovascular Cardiovascular: Denies chest pain and Denies dyspnea Respiratory Respiratory: Denies cough and Denies dyspnea Gastrointestinal Gastrointestinal: Denies abdominal pain, Denies diarrhea and Denies vomiting Genitourinary Genitourinary: Denies hematuria and Denies dysuria Musculoskeletal Musculoskeletal: Reports back pain and Denies numbness Integumentary/Breasts Skin/Breast: Denies lesions and Denies rash Neurologic Neurologic: Denies dizziness, Denies localized weakness and Denies numbness Allergic/Immunologic Allergic/Immunologic: Denies throat swelling [facility] Medical History (Updated 11/02/20 @ 14:07 by Shanice Gage DO) Acne Anxiety Fracture of left leg High cholesterol Hip fracture Hip fracture, left Hypertension Mood changes Osteopenia Wrist fracture, closed Wrist fracture, left 2013 Surgical History History of appendectomy History of hernia repair Hx of tonsillectomy Social History Smoking/Tobacco Use Status: Current every day Smoking risk assessment performed?: Yes Alcohol Intake: never Drug use: Never Do you feel safe at home: Yes Do you feel safe in your relationship?: Yes Exam Const General: cooperative and no acute distress Nutritional Appearance: obese centrally obese Orientation: alert, awake and oriented x3 HENMT Head: normal to inspection Face and sinus: normal facial exam Eyes General: appearance normal, both eyes and all related structures EOM: EOM intact bilaterally Neck Neck: normal visual inspection and No submandibular swelling Lymphatic: no lymphadenopathy noted Chest Chest: normal inspection of the chest and no tenderness Resp Effort & Inspection: normal respiratory effort and able to speak in complete sentences Auscultation: clear to auscultation bilaterally Cardio Rate: regular rate Rhythm: regular rhythm GI Inspection: normal to inspection Palpation: soft, not firm, not rigid and nontender Auscultation: normal bowel sounds Back/Spine/Pelvis Thoracic/Lumbar Spine: paraspinal tenderness (R lower thoracic), thoracic spinal tenderness and No lumbar spinal tenderness Pelvis: no pain with anterior-posterior compression Skin General skin exam: no rashes or lesions noted Neuro General: patient alert, patient awake and patient oriented x3 Cognition: normal cognition Speech: speech normal Motor: muscle tone normal throughout Sensory Exam: no sensory deficits noted DTR's: Rt Patellar: 1+, Lt Patellar: 1+, Rt Ankle: 1+ and Lt Ankle: 1+ Plantar Reflexes: Equivocal: bilateral (negative babinski b/l ) Extrem General: normal to inspection, full ROM, capillary refill normal, no calf tenderness bilaterally and no edema Other: Bilateral DP/PT pulses intact Psych Appearance: grossly normal Mental Status: mental status grossly normal Speech and Movement: speech and movement normal Affect: normal affect
[2020-11-02 10:52] VITALS: BP 103/68; PULSE 86; RESP 18; TEMP 36.6; O2SAT 99
--- NOTE | 2020-11-02 11:00 | DI.CT_ITS ---
EXAM: CT THORACIC LUMBAR SPINE WO CLINICAL HISTORY: midline lower thoracic pain, r/o fx. TECHNIQUE: Imaging Protocol: Axial computed tomography images with coronal and sagittal reformatted images were created and reviewed COMPARISON: CT CT lumbar spine wo from 08/24/2018 FINDINGS: THORACIC SPINE: There is no evidence of fracture nor listhesis of the thoracic vertebral bodies. No lytic osseous le sions. Mild scoliosis convex left and multiple right-sided osteophytes are noted. There are no obvi ous disc herniations nor central spinal canal stenosis. No evidence of paraspinal mass. No fluid co llection in the epidural and paraspinal regions. Multiple non healed left-sided rib fractures are no jared. LUMBOSACRAL SPINE: Again noted is multilevel fusion L2-S1 with posterior fusion rods and bilateral intrapedicular screws at these levels. The patient hip of the intra pedicular screws relative to the superior endplates r emains satisfactory and unchanged from the prior study of July 2018. Wedge compression fracture o f L2 is again noted, unchanged. There is no evidence of acute lumbar vertebral fracture. There is n o radiographic evidence of osteomyelitis. There is tight spinal canal stenosis at L2-3 level, similar to previous. Bone donor site in the right iliac bone is again noted. Sacroiliac joints unchanged. No new finding s in the sacral canal IMPRESSION: 1. No evidence of thoracic spinal column fracture. 2. L3-S1 lumbar fusion again noted with multilevel bilateral intrapedicular screws and posterior fus ion rods. There is no evidence of acute fracture thoracic spinal column. Chronic wedge fracture of L2 again noted appears unchanged July [address] scan. Hardware also appears unchanged. No new abno rmal fluid collection both epidural and paraspinal. There is spinal canal stenosis again noted at L2-3 level which is 1 level above the fusion. RADIATION DOSE DELIVERED: 1,946.35mGy.cm Total DLP 1,946.35mGy.cm Total DLP DATA REPOSITORY: All CT scans at this facility are submitted to the National Radiology Data Registry (NRDR) Dose Index Registry (DIR) with the [employer] (ACR). RADIATION OPTIMIZATION: All CT scans at this facility use at least one of these dose optimization te chniques: automated exposure control; mA and/or kV adjustment per patient size (includes targeted exa ms where dose is matched to clinical indication); or iterative reconstruction.
[2020-11-02] MEDS: HYDROmorphone 4 MG TAB PO (11:25)
== END 2020-11-02 14:20 | disposition home or self-care (01) ==
PROVIDERS: Emergency Provider Physician Assistant
DX: M54.5 Low back pain (principal); G89.29 Other chronic pain; Z98.1 Arthrodesis status; X50.0XXA Overexertion from strenuous movement or load, initial encounter; I10 Essential (primary) hypertension
CPT/HCPCS: 99284; 72128; 72131

== ENCOUNTER 2021-03-01 13:46 | Emergency (ER) | payer MEDICARE, SELFPAY ==
[2021-03-01] VITALS (18 sets, daily range): BP systolic 82–109; BP diastolic 34–70; PULSE 57–88; RESP 17–30; TEMP 36.1; O2SAT 97–100
--- NOTE | 2021-03-01 14:00 | RT.EKG_ITS ---
APPROVED REPORT Exam: Resting ECG Patient Location: E HR:78 bpm ECG Measurements Heart Rate 78 AXIS CA 173 P 49 QRSd 80 QRS 55 QT 367 T 40 QTc 418 Conclusion Sinus rhythm...normal P axis, V-rate 60- 99 Low voltage, extremity and precordial leads...extremity<0.5mV, precordial<1.0mV sinus rhythm at 78, normal axis, low voltage, no STEMI, nondiagnostic EKG
--- NOTE | 2021-03-01 15:15 | ED.GENADUL_ITS ---
Discharge Plan Disposition Patient Disposition: AGAINST MEDICAL ADVICE Condition: Serious Discharge Details Clinical Impression: Hyponatremia, Hypomagnesemia Primary Care Provider: [facility],[place] ED Provider: Satish Foster [place] Meds and New Rx's Prescriptions: Continued omeprazole 20 MG capsule,delayed release(DR/EC) 20 mg PO BID RF: 0 sildenafil [Viagra] 100 MG tablet 100 mg PO PRN PRNRF: 0 lisinopril 5 MG tablet 20 mg PO DAILY RF: 0 aspirin [Aspir-81] 81 MG tablet,delayed release (DR/EC) 81 mg PO DAILY RF: 0 hydromorphone [Dilaudid] 2 MG tablet 4 mg PO Q4H PRN PRNRF: 0 pregabalin [Lyrica] 50 MG capsule 100 mg PO DAILY RF: 0 doxycycline hyclate [Doryx] 100 MG tablet,delayed release (DR/EC) 100 mg PO DAILY RF: 0 hydroxyzine HCl 25 mg Tablet 25 mg PO TID RF: 0 olanzapine [Zyprexa] 5 MG tablet 5 mg PO DAILY RF: 0 simvastatin 20 MG tablet 20 mg PO QPM RF: 0 docusate sodium [Stool Softener] 250 MG capsule 250 mg PO BID RF: 0 Discharge Instructions Instructions: Hyponatremia (ED), Hypomagnesemia (ED) Additional Instructions: your sodium was low and we wanted to admit you to the hospital but you chose to leave against our medical advice. If you change your mind and would want further evaluation you can always return to the emergency department, and you should return immediately if you feel more ill, have difficulty breathing or severe pain. follow up with your primary care provider as soon as possible to have your electrolytes rechecked Discharge Data Discharge Date/Time-TO BE ENTERED AT DEPARTURE: 03/01/21 20:35 Medical Decision Making <Rox Quesada MD - Last Filed: 03/08/21 09:55> [place] is a 60-year-old man who presented to emergency department with 1 month of decreased appetite, dry cough, and weight loss. On exam patient is well and nontoxic-appearing, however he is noted to be hypotensive with systolic blood pressure 85. Mucous membranes are dry. Lungs are clear to auscultation. There is no abdominal tenderness to palpation. No posterior calf tenderness to palpation. Concern for dehydration, Covid, neoplastic disease, pneumonia, pulmonary embolism, other. Doubt acute coronary syndrome. Possible sepsis, however no source immediately identified on examination. Exam/history at this time is not consistent with acute aortic pathology, other acute vascular pathology, meningitis. Plan for IV fluid hydration, EKG, screening labs, telemetry, CT chest versus chest x-ray pending D-dimer. Will continue to monitor. Patient with persistent hypotension with systolic blood pressure in the 80s after 1 L fluid. We will continue IV fluid hydration. Patient continues to deny any acute symptoms. Lactate within normal. Sodium 123. Creatinine 1.5. Troponin negative. Elevated D-dimer. Plan for CT chest. Patient signed out to Dr. Foster at time of shift change with CT chest pending. Anticipate admission regardless of CT results given unclear cause of hypertension, electrolyte abnormalities. I did discuss the patient preliminarily with the admitting hospitalist, Dr. Murphy, who will await call fro m oncoming physician to confirm admission once CT resulted. Clinical impression: Loss of appetite, cough, hypotension Disposition: Still a patient Medical Records Medical records reviewed: Yes I reviewed the patient's medical records. Lab Data Lab results reviewed: Yes I reviewed the patient's lab results. Labs: 03/01/21 17:30 Blood Blood Culture - Final NO GROWTH 120 HOURS 03/01/21 16:21 Blood Blood Culture - Final NO GROWTH 120 HOURS Laboratory Tests Range/Units 03/01/21 03/01/21 03/01/21 15:48 15:48 15:48 WBC (4.4-10.8) 10^3/uL 9.88 RBC (4.36-5.78) 10^6/uL 4.45 Hgb (13.5-17.5) g/dL 11.6 L Hct (40.0-50.0) % 34.5 L MCV (80-95) fL 77.5 L MCH (27.0-33.0) pg 26.1 L MCHC (32.0-36.0) % 33.6 RDW (11.8-14.1) % 13.7 Plt Count (130-400) 10^3/uL 120 L MPV (8.0-11.0) fL 8.8 Immature Gran % 0.5 Neutrophils % 74.1 Lymphocytes % 16.4 Monocytes % 8.5 Eosinophils % 0.2 Basophils % 0.3 Nucleated RBC % % 0 Absolute Neutrophils (1.2-6.7) 10^3/uL 7.32 H Absolute Lymphocytes (1.2-3.4) 10^3/uL 1.62 Absolute Monocytes (0.1-0.8) 10^3/uL 0.84 H Absolute Eosinophils (0.0-0.7) 10^3/uL 0.02 Absolute Basophils (0.0-0.2) 10^3/uL 0.03 D-Dimer (<500) ng/mlFEU 2549 H VBG Lactate (0.6-1.4) mmol/L Sodium (136-145) mmol/L 123 L* Potassium (3.5-5.1) mmol/L 5.5 H Chloride (98-107) mmol/L 89 L Carbon Dioxide (21.0-32.0) mmol/L 24.5 Anion Gap (3-11) mmol/L 9.5 BUN (7-18) mg/dL 18 Creatinine (0.70-1.30) mg/dL 1.5 H Estimated GFR/1.73 m2 (mL/min/1.73m2) 47.42 Glucose (74-106) mg/dL 90 Calcium (8.5-10.1) mg/dL 8.4 L Magnesium (1.8-2.4) mg/dL 1.1 L Total Bilirubin (0.2-1.0) mg/dL 0.5 AST (15-37) U/L 169 H ALT (16-63) U/L 17 Alkaline Phosphatase (46-116) U/L 183 H Troponin I (<0.06) ng/mL < 0.05 Total Protein (6.4-8.2) g/dL 7.4 Albumin (3.4-5.0) g/dL 2.6 L TSH (0.36-3.74) uIU/mL 0.89 Urine Color (Yellow) Urine Clarity (Clear) Urine pH (5-8) Ur Specific [place] (1.005-1.025) Urine Protein (Negative) mg/dL Urine Ketones (Negative) mg/dL Urine Blood (Negative) Urine Nitrite (Negative) Urine Bilirubin (Negative) Urine Urobilinogen (Up TO 0.2) EU/dL Ur Leukocyte Esterase (Negative) Urine Glucose (Negative) mg/dL COVID-19 Source SARS-CoV-2 (PCR) (Negative) Range/Units 03/01/21 03/01/21 03/01/21 16:21 17:39 18:58 WBC (4.4-10.8) 10^3/uL RBC (4.36-5.78) 10^6/uL Hgb (13.5-17.5) g/dL Hct (40.0-50.0) % MCV (80-95) fL MCH (27.0-33.0) pg MCHC (32.0-36.0) % RDW (11.8-14.1) % Plt Count (130-400) 10^3/uL MPV (8.0-11.0) fL Immature Gran % Neutrophils % Lymphocytes % Monocytes % Eosinophils % Basophils % Nucleated RBC % % Absolute Neutrophils (1.2-6.7) 10^3/uL Absolute Lymphocytes (1.2-3.4) 10^3/uL Absolute Monocytes (0.1-0.8) 10^3/uL Absolute Eosinophils (0.0-0.7) 10^3/uL Absolute Basophils (0.0-0.2) 10^3/uL D-Dimer (<500) ng/mlFEU VBG Lactate (0.6-1.4) mmol/L 1.1 Sodium (136-145) mmol/L Potassium (3.5-5.1) mmol/L Chloride (98-107) mmol/L Carbon Dioxide (21.0-32.0) mmol/L Anion Gap (3-11) mmol/L BUN (7-18) mg/dL Creatinine (0.70-1.30) mg/dL Estimated GFR/1.73 m2 (mL/min/1.73m2) Glucose (74-106) mg/dL Calcium (8.5-10.1) mg/dL Magnesium (1.8-2.4) mg/dL Total Bilirubin (0.2-1.0) mg/dL AST (15-37) U/L ALT (16-63) U/L Alkaline Phosphatase (46-116) U/L Troponin I (<0.06) ng/mL < 0.05 Total Protein (6.4-8.2) g/dL Albumin (3.4-5.0) g/dL TSH (0.36-3.74) uIU/mL Urine Color (Yellow) Urine Clarity (Clear) Urine pH (5-8) Ur Specific [place] (1.005-1.025) Urine Protein (Negative) mg/dL Urine Ketones (Negative) mg/dL Urine Blood (Negative) Urine Nitrite (Negative) Urine Bilirubin (Negative) Urine Urobilinogen (Up TO 0.2) EU/dL Ur Leukocyte Esterase (Negative) Urine Glucose (Negative) mg/dL COVID-19 Source Nasopharyx SARS-CoV-2 (PCR) (Negative) Negative Range/Units 03/01/21 19:03 WBC (4.4-10.8) 10^3/uL RBC (4.36-5.78) 10^6/uL Hgb (13.5-17.5) g/dL Hct (40.0-50.0) % MCV (80-95) fL MCH (27.0-33.0) pg MCHC (32.0-36.0) % RDW (11.8-14.1) % Plt Count (130-400) 10^3/uL MPV (8.0-11.0) fL Immature Gran % Neutrophils % Lymphocytes % Monocytes % Eosinophils % Basophils % Nucleated RBC % % Absolute Neutrophils (1.2-6.7) 10^3/uL Absolute Lymphocytes (1.2-3.4) 10^3/uL Absolute Monocytes (0.1-0.8) 10^3/uL Absolute Eosinophils (0.0-0.7) 10^3/uL Absolute Basophils (0.0-0.2) 10^3/uL D-Dimer (<500) ng/mlFEU VBG Lactate (0.6-1.4) mmol/L Sodium (136-145) mmol/L Potassium (3.5-5.1) mmol/L Chloride (98-107) mmol/L Carbon Dioxide (21.0-32.0) mmol/L Anion Gap (3-11) mmol/L BUN (7-18) mg/dL Creatinine (0.70-1.30) mg/dL Estimated GFR/1.73 m2 (mL/min/1.73m2) Glucose (74-106) mg/dL Calcium (8.5-10.1) mg/dL Magnesium (1.8-2.4) mg/dL Total Bilirubin (0.2-1.0) mg/dL AST (15-37) U/L ALT (16-63) U/L Alkaline Phosphatase (46-116) U/L Troponin I (<0.06) ng/mL Total Protein (6.4-8.2) g/dL Albumin (3.4-5.0) g/dL TSH (0.36-3.74) uIU/mL Urine Color (Yellow) Yellow Urine Clarity (Clear) Clear Urine pH (5-8) 6.5 Ur Specific [place] (1.005-1.025) 1.010 Urine Protein (Negative) mg/dL Negative Urine Ketones (Negative) mg/dL Negative Urine Blood (Negative) Negative Urine Nitrite (Negative) Negative Urine Bilirubin (Negative) Negative Urine Urobilinogen (Up TO 0.2) EU/dL 0.2 Ur Leukocyte Esterase (Negative) Negative Urine Glucose (Negative) mg/dL Negative COVID-19 Source SARS-CoV-2 (PCR) (Negative) ECG Data Attestation: I personally reviewed and interpreted this ECG (s) as follows: Interpretation: EKG shows sinus rhythm at 78, normal axis, low voltage, no STEMI, nondiagnostic EKG <Satish Foster MD - Last Filed: 03/01/21 19:34> Pt signed out to me pending ct results which was negative for acute abnormalities. He is currently caox4 and has capacity to make his own decisions. I discussed that Dr. Quesada as well as myself believed he should be admitted to the hospital based on his symptoms and electrolyte abnormalities. He is declining admission and would like to go home. He understands why I feel he should be admitted and if he goes home there is a high chance he could deteriorate further leading to or permanent disability requiring total assistance with basic tasks. He is willing to take these risks. He is leaving AGAINST MEDICAL ADVICE. He understands he can return to the ED if he changes his mind Imaging Data Radiologic Study: Attestation: I personally reviewed and interpreted this imaging study as follows: Imaging: CT Scan Radiologist's impression: no acute findings Lab Data Lab results reviewed: Yes I reviewed the patient's lab results. HPI <Rox Quesada MD - Last Filed: 03/08/21 09:55> General Mode of arrival: ambulatory . Date/Time Provider Initiated Documentation: 03/01/21 14:13 . Limitations to Documentation: no limitations . Information obtained by: patient, RN notes reviewed and old records reviewed . HPI Narrative: [place] is a 60-year-old man with history of hypertension, insulin-dependent diabetes presenting to the emergency department with generalized weakness, loss of appetite, alteration in taste since the beginning of January. Patient reports that since January 28 he has had a dry cough, nasal congestion, nausea, and occasional vomiting. He reports that he has lost 12 pounds since the beginning of January, which he attributes to his decreased appetite. Patient reports that he has been drinking some fluid and eating food, but amount is significantly reduced from normal for him. Patient reports that he has also developed fatigue that is abnormal for him. He denies fevers, shortness of breath, any pain, diarrhea, numbness, weakness, rash. Patient reports that he received his second dose of the Covid vaccine on January 08. Related Data Home Medications Medication Instructions Recorded Confirmed omeprazole 20 mg PO BID 01/04/13 03/01/21 sildenafil [Viagra] 100 mg PO PRN PRN 05/12/13 03/01/21 lisinopril 20 mg PO DAILY 08/16/13 03/01/21 aspirin [Aspir-81] 81 mg PO DAILY 09/18/14 03/01/21 hydromorphone [Dilaudid] 4 mg PO Q4H PRN PRN 02/17/15 03/01/21 pregabalin [Lyrica] 100 mg PO DAILY 06/23/15 03/01/21 docusate sodium [Stool Softener] 250 mg PO BID 05/29/17 03/01/21 olanzapine [Zyprexa] 5 mg PO DAILY 05/29/17 03/01/21 simvastatin 20 mg PO QPM 05/29/17 03/01/21 doxycycline hyclate [Doryx] 100 mg PO DAILY 10/12/17 03/01/21 hydroxyzine HCl 25 mg PO TID 08/24/18 03/01/21 Allergies Allergy/AdvReac Type Severity Reaction Status Date / Time morphine AdvReac Severe Psychosis Unverified 03/01/21 16:42 codeine [Codeine] AdvReac Intermediate Nausea Unverified 03/01/21 16:42 gabapentin AdvReac Mild dries his Unverified 03/01/21 16:42 eyes and mouth too much General Stated Complaint: GenMedical GIANFRANCO: 3 Review of Systems <Rox Quesada MD - Last Filed: 03/08/21 09:55> Narrative: Constitutional: denies fevers, reports fatigue, decreased appetite Eyes: denies eye pain ENT: denies ear pain, dental pain, sore throat Cardiovascular: denies chest pain Respiratory: denies SOB, reports cough GI: denies abdominal pain, diarrhea reports nausea, occasional vomiting : denies flank pain MSK: denies back pain, neck pain, arthralgias, myalgias Skin: denies rash Neuro: denies headaches, numbness, weakness PFSH <Rox Quesada MD - Last Filed: 03/08/21 09:55> Medical History Acne Anxiety Fracture of left leg High cholesterol Hip fracture Hip fracture, left Hypertension Mood changes Osteopenia Wrist fracture, closed Wrist fracture, left 2013 Surgical History History of appendectomy History of hernia repair Hx of tonsillectomy Social History Smoking/Tobacco Use Status: Current every day Smoking risk assessment performed?: Yes Alcohol Intake: never Drug use: Never Do you feel safe at home: Yes Do you feel safe in your relationship?: Yes Exam <Rox Quesada MD - Last Filed: 03/08/21 09:55> Narrative Exam Narrative: Constitutional: well and [id number], pleasant, conversing normally HENT: head atraumatic/normocephalic/normal inspection, mucous membranes dry Eyes: conjunctiva normal, sclera normal, pupils 3mm b/l Neck: no stridor, normal ROM, trachea midline Chest: normal inspection Resp: normal work of breathing, LCTAB Cardio: normal rate, normal rhythm, no murmur appreciated GI: abdomen soft, non-tender, non-distended Back: normal inspection, no rash Skin: warm, dry, normal color, no rash Neuro: alert, not altered, grossly non-focal, normal tone Ext: no edema Psych: normal mood, normal affect, normal behavior Course <Rox Quesada MD - Last Filed: 03/08/21 09:55> Vital Signs Vital signs: Vital Signs Temperature 36.1 C L 03/01/21 13:53 Pulse 88 03/01/21 13:53 Respiratory Rate 18 03/01/21 13:53 Blood Pressure 109/53 L 03/01/21 13:53 Pulse Oximetry 100 03/01/21 13:53 Temperature 36.1 C L 03/01/21 13:53 Temperature Source Skin 03/01/21 13:53 Pulse 88 03/01/21 13:53 Respiratory Rate 18 03/01/21 13:53 Blood Pressure 109/53 L 03/01/21 13:53 Blood Pressure Position Sitting 03/01/21 13:53 Pulse Oximetry 100 03/01/21 13:53 Oxygen Delivery Method Room Air 03/01/21 13:53 Oxygen Flow Rate 0 03/01/21 13:53 Pain Level 7 03/01/21 13:53 Comment 03/01/21 13:53
[2021-03-01 15:53] LABS: Abs Immature Grans 0.05 10^3/uL (0.0-0.06); Absolute Basophil Count 0.03 10^3/uL (0.0-0.2); Absolute Eosinophil Count 0.02 10^3/uL (0.0-0.7); Absolute Lymphocyte Count 1.62 10^3/uL (1.2-3.4); Absolute Monocyte Count 0.84 10^3/uL (0.1-0.8); Absolute Neutrophil Count 7.32 10^3/uL (1.2-6.7); Basophils % 0.3; Eosinophils % 0.2; HCT 34.5 % (40.0-50.0); HGB 11.6 g/dL (13.5-17.5); Immature Grans % 0.5; Lymphocytes % 16.4; MCH 26.1 pg (27.0-33.0); MCHC 33.6 % (32.0-36.0); MCV 77.5 fL (80-95); MPV 8.8 fL (8.0-11.0); Monocytes % 8.5; Neutrophils % 74.1; Nucleated RBC 0 %; Platelet Count 120 10^3/uL (130-400); RBC 4.45 10^6/uL (4.36-5.78); RDW 13.7 % (11.8-14.1); RDW-SD 38.9 fL; WBC 9.88 10^3/uL (4.4-10.8)
[2021-03-01] MEDS: Normal Saline 1,000 ML 1000 ML IV ×2 (16:00→16:10)
[2021-03-01 16:16] LABS: ALT 17 U/L (16-63); AST 169 U/L (15-37); Albumin 2.6 g/dL (3.4-5.0); Alkaline Phosphatase 183 U/L (46-116); Anion Gap 9.5 mmol/L (3-11); BUN 18 mg/dL (7-18); Bilirubin, Total 0.5 mg/dL (0.2-1.0); CO2 24.5 mmol/L (21.0-32.0); CREATININE 1.5 mg/dL (0.70-1.30); Calcium 8.4 mg/dL (8.5-10.1); Chloride 89 mmol/L (98-107); Estimated GFR 47.42 (mL/min/1.73m2); Glucose 90 mg/dL (74-106); Magnesium 1.1 mg/dL (1.8-2.4); Potassium 5.5 mmol/L (3.5-5.1); TSH (W/Ref FT4) 0.89 uIU/mL (0.36-3.74); Total Protein 7.4 g/dL (6.4-8.2); Troponin I < 0.05 ng/mL (<0.06)
[2021-03-01 16:17] LABS: Sodium 123 mmol/L (136-145)
[2021-03-01 16:28] LABS: Lactate 1.1 mmol/L (0.6-1.4)
[2021-03-01] MEDS: MAGNESIUM SULFATE 2 GM/50 ML BAG IVPB (16:31)
[2021-03-01 16:40] LABS: D-Dimer 2549 ng/mlFEU (<500)
--- NOTE | 2021-03-01 17:00 | DI.CT_ITS ---
Exam(s) CT CHEST PE CTA EXAM: CT CHEST PE CTA CLINICAL HISTORY: persistentcough, elevated d-dimer. TECHNIQUE: Imaging Protocol: Axial CT angiography was performed with multi-slice acquisition and mu lti-planar and/or 3D reconstructions. CONTRAST MATERIAL: Intravenous: Omnipaque 350 Contrast volume:100 mL COMPARISON: No exams were available for comparison FINDINGS: Tracheobronchial tree: Patent where visualized. Pulmonary parenchyma: No consolidation or dominant measurable mass. No architectural distortion. Pulmonary Arteries: No evidence of filling defect to suggest pulmonary emboli. Mediastinum and Aundrea: No dominant adenopathy or fluid collection. Visualized thyroid gland: Unremarkable. Pleura: No effusion or pneumothorax. Heart: The heart is not dilated. Mild coronary artery calcification. No pericardial effusion. Aorta: Thoracic aorta non-dilated. Mild atherosclerosis. No dissection. Upper abdomen: 3.5 x 2.4 cm isodense right adrenal nodule. Soft tissues: Unremarkable. Bones: Within normal limits for the patient's age. Old nonunited right rib fracture. IMPRESSION: 1. No evidence of pulmonary embolism, thoracic aortic dissection or aneurysm. 2. 3.5 x 2.4 cm right adrenal nodule. A nonemergent follow-up with a CT or MRI of the abdomen using the adrenal protocol is recommended. Incidental Findings RADIATION DOSE DELIVERED: 540.75mGy.cm Total DLP DATA REPOSITORY: All CT scans at this facility are submitted to the National Radiology Data Registry (NRDR) Dose Index Registry (DIR) with the [employer] (ACR). RADIATION OPTIMIZATION: All CT scans at this facility use at least one of these dose optimization te chniques: automated exposure control; mA and/or kV adjustment per patient size (includes targeted exa ms where dose is matched to clinical indication); or iterative reconstruction.
[2021-03-01 18:34] LABS: COVID-19 PCR Negative (Negative)
[2021-03-01] MEDS: Omnipaque 350 MG/ML 100 ML BTL IJ (18:54)
[2021-03-01] MEDS: Normal Saline - Diluent 50 ML VIAL IV (18:56)
[2021-03-01 19:27] LABS: Bilirubin Negative (Negative); Blood Negative (Negative); Clarity Clear (Clear); Glucose Negative (Negative); Ketones Negative (Negative); Leukocyte Esterase Negative (Negative); Nitrite Negative (Negative); Urobilinogen 0.2 EU/dL (Up TO 0.2); pH 6.5 (5-8)
--- NOTE | 2021-03-01 19:27 | DI.VRAD_ITS ---
PROCEDURE INFORMATION: Exam: CTA Chest With Contrast Exam date and time: 03/01/2021 6:41 PM Age: 60 years old Clinical indication: Abnormal findings; Abnormal diagnostic tests; Patient HX: Persistent cough, elevated d-dimer TECHNIQUE: Imaging protocol: Computed tomographic angiography of the chest with contrast. 3D rendering (Not supervised by radiologist): MIP and/or 3D reconstructed images were created by the technologist. Radiation optimization: All CT scans at this facility use at least one of these dose optimization techniques: automated exposure control; mA and/or kV adjustment per patient size (includes targeted exams where dose is matched to clinical indication); or iterative reconstruction. Contrast material: OMNIPAQUE 350; Contrast volume: 100 ml; Contrast route: INTRAVENOUS (IV); COMPARISON: CT CHEST FOR PULMONARY EMBOLUS 05/28/2015 2:54 PM FINDINGS: Pulmonary arteries: Normal. No pulmonary emboli. Aorta: Unremarkable. No aortic aneurysm. No aortic dissection. Lungs: Unremarkable. No consolidation. No masses. Pleural spaces: Unremarkable. No pneumothorax. No pleural effusion. Heart: Unremarkable. No cardiomegaly. No pericardial effusion. Lymph nodes: Unremarkable. No enlarged lymph nodes. Bones/joints: Chronic degenerative changes of the spine are present. Soft tissues: Unremarkable. IMPRESSION: No evidence of pulmonary embolism. No acute abnormality. Dictated and Authenticated by: Jeevan Weiss MD. Ordering:EDWAR Gramajo MD
[2021-03-01 19:44] LABS: Troponin I < 0.05 ng/mL (<0.06)
== END 2021-03-01 20:35 | disposition left against medical advice (07) ==
PROVIDERS: Student in an Organized Health Care Education/Training Program; Emergency Provider Emergency Medicine
DX: E87.1 Hypo-osmolality and hyponatremia (principal); E83.42 Hypomagnesemia; I95.9 Hypotension, unspecified; R43.2 Parageusia; R79.1 Abnormal coagulation profile; R05 Cough; R63.0 Anorexia; Z03.818 Encounter for observation for suspected exposure to other biological agents ruled out; Z53.29 Procedure and treatment not carried out because of patient's decision for other reasons
CPT/HCPCS: 36415; 71275; 80053; 87040; 87635; 93005; 96361; 96365; 96366; 99285; 81003; 83605; 83735; 84443; 84484; 85025; 85379; 93010; J3490

== ENCOUNTER 2021-04-02 11:34 | Inpatient (IN) | payer MEDICARE, SELFPAY ==
[2021-04-02] VITALS (67 sets, daily range): BP systolic 89–119; BP diastolic 59–88; PULSE 88–121; RESP 12–28; TEMP 36.4–36.7; O2SAT 98–100
--- NOTE | 2021-04-02 12:00 | RT.EKG_ITS ---
APPROVED REPORT Exam: Resting ECG Reason for Exam: electrolyte abnormalities Patient Location: E HR:116 bpm ECG Measurements Heart Rate 116 AXIS MA 154 P 59 QRSd 71 QRS 7 QT 302 T 44 QTc 420 Conclusion Sinus tachycardia...rate> 99 Ventricular premature complex...V complex w/ short R-R interval Low voltage, extremity leads...all extremity leads <0.5mV
--- NOTE | 2021-04-02 12:00 | DI.CT_ITS ---
Exam(s) CT ABDOMEN PELVIS WO EXAM: CT ABDOMEN PELVIS WO CLINICAL HISTORY: RUQ pain. TECHNIQUE: Imaging Protocol: Axial computed tomography images with coronal and sagittal reformatted images were created and reviewed. COMPARISON: CT CT CHEST PE CTA from 03/01/2021 FINDINGS: ABDOMEN: Lung Bases: Normal where visualized. Liver: Normal density. There are multiple hypodense masses within the liver most suspicious for hepat ic metastatic disease. Gallbladder and biliary tract: There is a question of layering debris within the gallbladder which ma y represent sludge or stones. Pancreas: Normal density, no abnormal calcifications or inflammatory process. Spleen: Normal. Kidneys: Normal size, contour and axis.No radiodense stones or obstructive uropathy. No masses seen. Adrenal glands: There is a 3.7 x 2.6 cm right adrenal mass. There is a 1 cm nodule in the left adren al gland. Lymph nodes: Mildly enlarged lymph nodes are seen in the upper abdomen. Abdominal Aorta: Abdominal portion non-dilated. Atherosclerosis. PELVIS: Bladder:Portions of the urinary bladder obscured by the patient's left total hip replacement. Prosta te gland appears enlarged and impinges upon the base of the urinary bladder. A bladder mass cannot b e excluded. This area is not well visualized due to the artifact. Bowel: No obstruction or bowel wall thickening. No evidence of appendicitis. The stomach is not well distended. Peritoneal cavity: No ascites, collection or mesenteric inflammatory response. No free air. Reproductive organs: Please see the above section on the bladder. Bones: Old bilateral rib fractures. Posterior spinal surgery from L3 through S1. The patient has a l eft total hip replacement. Degenerative changes are seen in the lumbar spine and the right hip. The re is a lytic lesion involving the right acetabulum consistent with metastatic disease. Soft Tissues: Within normal limits. There is fatty atrophy of the left iliopsoas muscle. IMPRESSION: 1. Findings consistent with metastatic disease involving the liver, right adrenal gland and right christen tabulum. Mildly enlarged lymph nodes in the upper abdomen. 2. Poor visualization of the urinary bladder secondary to the patient's left total hip replacement. 3. No acute abdominal or pelvic process. 4. Layering debris in the gallbladder which may represent stones or sludge. 5. Results of this exam have been verbally communicated with provider. RADIATION DOSE DELIVERED: 1,221.23mGy.cm Total DLP DATA REPOSITORY: All CT scans at this facility are submitted to the National Radiology Data Registry (NRDR) Dose Index Registry (DIR) with the [employer] (ACR). RADIATION OPTIMIZATION: All CT scans at this facility use at least one of these dose optimization te chniques: automated exposure control; mA and/or kV adjustment per patient size (includes targeted exa ms where dose is matched to clinical indication); or iterative reconstruction.
[2021-04-02 12:55] LABS: Abs Immature Grans 0.06 10^3/uL (0.0-0.06); Absolute Basophil Count 0.01 10^3/uL (0.0-0.2); Absolute Lymphocyte Count 1.04 10^3/uL (1.2-3.4); Absolute Monocyte Count 0.79 10^3/uL (0.1-0.8); Absolute Neutrophil Count 9.54 10^3/uL (1.2-6.7); Basophils % 0.1; HCT 43.7 % (40.0-50.0); HGB 14.2 g/dL (13.5-17.5); Immature Grans % 0.5; Lymphocytes % 9.1; MCH 25.5 pg (27.0-33.0); MCHC 32.5 % (32.0-36.0); MCV 78.5 fL (80-95); MPV 9.1 fL (8.0-11.0); Monocytes % 6.9; Neutrophils % 83.4; Nucleated RBC 0 %; Platelet Count 123 10^3/uL (130-400); RBC 5.57 10^6/uL (4.36-5.78); RDW 15.6 % (11.8-14.1); RDW-SD 43.5 fL; WBC 11.44 10^3/uL (4.4-10.8)
[2021-04-02 12:56] LABS: BE (Venous) -5 mmol/L (-2-3); HCO3 (Venous) 20 mmol/L (23-28); Lactate 3.7 mmol/L (0.6-1.4); O2 Sat (Venous) 76 %; TCO2 (Venous) 18 mmol/L (24-29); pCO2 (Venous) 33 mmHg (41-51); pO2 (Venous) 42 mmHg
[2021-04-02 13:10] LABS: ALT 25 U/L (16-63); AST 198 U/L (15-37); Alkaline Phosphatase 243 U/L (46-116); Anion Gap 13.6 mmol/L (3-11); Bilirubin, Total 1.1 mg/dL (0.2-1.0); CO2 20.4 mmol/L (21.0-32.0); CREATININE 2.6 mg/dL (0.70-1.30); Calcium 11.1 mg/dL (8.5-10.1); Chloride 96 mmol/L (98-107); Estimated GFR 25.05 (mL/min/1.73m2); Glucose 180 mg/dL (74-106); Potassium 5.1 mmol/L (3.5-5.1); Sodium 130 mmol/L (136-145); Total Protein 9.3 g/dL (6.4-8.2)
[2021-04-02 13:11] LABS: BUN 88 mg/dL (7-18)
[2021-04-02 13:15] LABS: Troponin I < 0.05 ng/mL (<0.06)
[2021-04-02] MEDS: Normal Saline 1,000 ML 1000 ML IV ×2 (13:52→13:53)
[2021-04-02] MEDS: PIPERACILLIN/TAZO 3.375 GM in Normal Saline 50 ML IVPB (13:53)
[2021-04-02 14:01] LABS: Ammonia 25 umol/L (11-32)
--- NOTE | 2021-04-02 14:02 | W.ED.GENAD ---
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 Benitez, radiology Patient made aware regarding possible cancer diagnosis, we did discuss transferring patient to higher level of care, however [facility] do not currently have beds available Although patient is mentating within normal limits, he does have slurred speech and I am unaware of patient's baseline, therefore I did order CT scan after discussing with hospitalist to ensure there is no neurological abnormality Otherwise the plan is to admit patient here until bed becomes available or we are able to arrange for oncology follow-up as patient will need admission for acute renal failure, he has received 2 L of normal saline a ordered IV infusion Case discussed with , hospitalist at [facility] states currently there are no beds available for this level of care but should anything change, please return phone call, they are aware that should the CT head exhibit any abnormality, we will return call [facility] does not have any prescription as available Initially I did order empiric antibiotics given the lactate elevation, hypertension, and tachycardia although patient heart rate has improved Potassium 5.1, his lactate is 3.7, he has now normotensive, 11 Mentation is intact, chest x-ray does not show acute pathology She is to be signed out to Lenore York pending CT scan with a plan to admit here CT scan within normal limits Differential Diagnosis Differential Diagnosis: Cirrhosis, electrolyte abnormality, cholecystitis, urinary tract infection Medical Records Medical records reviewed: Yes I reviewed the patient's medical records. Lab Data Lab results reviewed: Yes I reviewed the patient's lab results. <Jose Daniel Quesada MD - Last Filed: 04/02/21 14:38> Patient seen, examined, and discussed with GAURANG Gotti. I agree with treatment plan as discussed/documented. <Lenore York NP - Last Filed: 04/02/21 19:06> care of patient and report received by Vignesh Dunlap APRN, chart reviewed. ct head with no acute findings. [facility] [place] [facility] at [facility]. case discussed with Dr Bojorquez who accepts patient for acute admission of acute renal failure. Medical Records Medical records narrative: PROCEDURE INFORMATION: Exam: CT Head Without Contrast Exam date and time: 04/02/2021 3:13 PM Age: 61 years old Clinical indication: Speech disturbance; Slurred speech TECHNIQUE: Imaging protocol: Computed tomography of the head without contrast. Radiation optimization: All CT scans at this facility use at least one of these dose optimization techniques: automated exposure control; mA and/or kV adjustment per patient size (includes targeted exams where dose is matched to clinical indication); or iterative reconstruction. COMPARISON: No relevant prior studies available. FINDINGS: Brain: Normal. No hemorrhage. Unremarkable white matter. No mass effect. Cerebral ventricles: No ventriculomegaly. Paranasal sinuses: Visualized sinuses are unremarkable. No fluid levels. Mastoid air cells: Visualized mastoid air cells are well aerated. Bones/joints: Unremarkable. No acute fracture. Soft tissues: Unremarkable. IMPRESSION: No acute intracranial abnormality. Dictated and Authenticated by: Ken Chung MD. Ordering:ERICK Paz MD Lab Data Lab results reviewed: Yes I reviewed the patient's lab results. Lab results narrative: 04/02/21 13:46 Blood Blood Culture - Pending 04/02/21 12:45 Blood Blood Culture - Pending Laboratory Tests Range/Units 04/02/21 04/02/21 04/02/21 12:45 12:45 12:45 WBC (4.4-10.8) 10^3/uL 11.44 H RBC (4.36-5.78) 10^6/uL 5.57 Hgb (13.5-17.5) g/dL 14.2 Hct (40.0-50.0) % 43.7 MCV (80-95) fL 78.5 L MCH (27.0-33.0) pg 25.5 L MCHC (32.0-36.0) % 32.5 RDW (11.8-14.1) % 15.6 H Plt Count (130-400) 10^3/uL 123 L MPV (8.0-11.0) fL 9.1 Immature Gran % 0.5 Neutrophils % 83.4 Lymphocytes % 9.1 Monocytes % 6.9 Eosinophils % 0.0 Basophils % 0.1 Nucleated RBC % % 0 Absolute Neutrophils (1.2-6.7) 10^3/uL 9.54 H Absolute Lymphocytes (1.2-3.4) 10^3/uL 1.04 L Absolute Monocytes (0.1-0.8) 10^3/uL 0.79 Absolute Eosinophils (0.0-0.7) 10^3/uL 0.00 Absolute Basophils (0.0-0.2) 10^3/uL 0.01 VBG pH (7.31-7.41) VBG pCO2 (41-51) mmHg VBG pO2 mmHg VBG HCO3 (23-28) mmol/L VBG Total CO2 (24-29) mmol/L VBG O2 Saturation % VBG Base Excess (-2-3) mmol/L VBG Lactate (0.6-1.4) mmol/L 3.7 H* Sodium (136-145) mmol/L 130 L Potassium (3.5-5.1) mmol/L 5.1 Chloride (98-107) mmol/L 96 L Carbon Dioxide (21.0-32.0) mmol/L 20.4 L Anion Gap (3-11) mmol/L 13.6 H BUN (7-18) mg/dL 88 H* Creatinine (0.70-1.30) mg/dL 2.6 H Estimated GFR/1.73 m2 (mL/min/1.73m2) 25.05 Glucose (74-106) mg/dL 180 H Calcium (8.5-10.1) mg/dL 11.1 H Magnesium (1.8-2.4) mg/dL Total Bilirubin (0.2-1.0) mg/dL 1.1 H AST (15-37) U/L 198 H ALT (16-63) U/L 25 Alkaline Phosphatase (46-116) U/L 243 H Ammonia (11-32) umol/L Creatine Kinase (39-308) U/L Troponin I (<0.06) ng/mL Total Protein (6.4-8.2) g/dL 9.3 H Albumin (3.4-5.0) g/dL 3.0 L Urine Color (Yellow) Urine Clarity (Clear) Urine pH (5-8) Ur Specific [place] (1.005-1.025) Urine Protein (Negative) mg/dL Urine Ketones (Negative) mg/dL Urine Blood (Negative) Urine Nitrite (Negative) Urine Bilirubin (Negative) Urine Urobilinogen (Up TO 0.2) EU/dL Ur Leukocyte Esterase (Negative) Urine RBC (0-2) HPF Urine WBC (0-5) HPF Ur Epithelial Cells (Negative) HPF Urine Crystals (Negative) HPF Urine Bacteria (Negative) HPF Urine Casts (Negative) LPF Urine Mucus (Negative) Ur Culture Indicated? Urine Glucose (Negative) mg/dL COVID-19 Source Range/Units 04/02/21 04/02/21 04/02/21 12:45 12:45 12:45 WBC (4.4-10.8) 10^3/uL RBC (4.36-5.78) 10^6/uL Hgb (13.5-17.5) g/dL Hct (40.0-50.0) % MCV (80-95) fL MCH (27.0-33.0) pg MCHC (32.0-36.0) % RDW (11.8-14.1) % Plt Count (130-400) 10^3/uL MPV (8.0-11.0) fL Immature Gran % Neutrophils % Lymphocytes % Monocytes % Eosinophils % Basophils % Nucleated RBC % % Absolute Neutrophils (1.2-6.7) 10^3/uL Absolute Lymphocytes (1.2-3.4) 10^3/uL Absolute Monocytes (0.1-0.8) 10^3/uL Absolute Eosinophils (0.0-0.7) 10^3/uL Absolute Basophils (0.0-0.2) 10^3/uL VBG pH (7.31-7.41) 7.40 VBG pCO2 (41-51) mmHg 33 L VBG pO2 mmHg 42 VBG HCO3 (23-28) mmol/L 20 L VBG Total CO2 (24-29) mmol/L 18 L VBG O2 Saturation % 76 VBG Base Excess (-2-3) mmol/L -5 L VBG Lactate (0.6-1.4) mmol/L Sodium (136-145) mmol/L Potassium (3.5-5.1) mmol/L Chloride (98-107) mmol/L Carbon Dioxide (21.0-32.0) mmol/L Anion Gap (3-11) mmol/L BUN (7-18) mg/dL Creatinine (0.70-1.30) mg/dL Estimated GFR/1.73 m2 (mL/min/1.73m2) Glucose (74-106) mg/dL Calcium (8.5-10.1) mg/dL Magnesium (1.8-2.4) mg/dL 3.0 H Total Bilirubin (0.2-1.0) mg/dL AST (15-37) U/L ALT (16-63) U/L Alkaline Phosphatase (46-116) U/L Ammonia (11-32) umol/L Creatine Kinase (39-308) U/L Troponin I (<0.06) ng/mL < 0.05 Total Protein (6.4-8.2) g/dL Albumin (3.4-5.0) g/dL Urine Color (Yellow) Urine Clarity (Clear) Urine pH (5-8) Ur Specific [place] (1.005-1.025) Urine Protein (Negative) mg/dL Urine Ketones (Negative) mg/dL Urine Blood (Negative) Urine Nitrite (Negative) Urine Bilirubin (Negative) Urine Urobilinogen (Up TO 0.2) EU/dL Ur Leukocyte Esterase (Negative) Urine RBC (0-2) HPF Urine WBC (0-5) HPF Ur Epithelial Cells (Negative) HPF Urine Crystals (Negative) HPF Urine Bacteria (Negative) HPF Urine Casts (Negative) LPF Urine Mucus (Negative) Ur Culture Indicated? Urine Glucose (Negative) mg/dL COVID-19 Source Range/Units 04/02/21 04/02/21 04/02/21 13:46 13:46 15:30 WBC (4.4-10.8) 10^3/uL RBC (4.36-5.78) 10^6/uL Hgb (13.5-17.5) g/dL Hct (40.0-50.0) % MCV (80-95) fL MCH (27.0-33.0) pg MCHC (32.0-36.0) % RDW (11.8-14.1) % Plt Count (130-400) 10^3/uL MPV (8.0-11.0) fL Immature Gran % Neutrophils % Lymphocytes % Monocytes % Eosinophils % Basophils % Nucleated RBC % % Absolute Neutrophils (1.2-6.7) 10^3/uL Absolute Lymphocytes (1.2-3.4) 10^3/uL Absolute Monocytes (0.1-0.8) 10^3/uL Absolute Eosinophils (0.0-0.7) 10^3/uL Absolute Basophils (0.0-0.2) 10^3/uL VBG pH (7.31-7.41) VBG pCO2 (41-51) mmHg VBG pO2 mmHg VBG HCO3 (23-28) mmol/L VBG Total CO2 (24-29) mmol/L VBG O2 Saturation % VBG Base Excess (-2-3) mmol/L VBG Lactate (0.6-1.4) mmol/L Sodium (136-145) mmol/L Potassium (3.5-5.1) mmol/L Chloride (98-107) mmol/L Carbon Dioxide (21.0-32.0) mmol/L Anion Gap (3-11) mmol/L BUN (7-18) mg/dL Creatinine (0.70-1.30) mg/dL Estimated GFR/1.73 m2 (mL/min/1.73m2) Glucose (74-106) mg/dL Calcium (8.5-10.1) mg/dL Magnesium (1.8-2.4) mg/dL Total Bilirubin (0.2-1.0) mg/dL AST (15-37) U/L ALT (16-63) U/L Alkaline Phosphatase (46-116) U/L Ammonia (11-32) umol/L 25 Creatine Kinase (39-308) U/L 31 L Troponin I (<0.06) ng/mL Total Protein (6.4-8.2) g/dL Albumin (3.4-5.0) g/dL Urine Color (Yellow) Yellow Urine Clarity (Clear) Clear Urine pH (5-8) 5.5 Ur Specific [place] (1.005-1.025) 1.020 Urine Protein (Negative) mg/dL 30 H Urine Ketones (Negative) mg/dL Negative Urine Blood (Negative) Moderate H Urine Nitrite (Negative) Negative Urine Bilirubin (Negative) Negative Urine Urobilinogen (Up TO 0.2) EU/dL 2.0 H Ur Leukocyte Esterase (Negative) Negative Urine RBC (0-2) HPF >50 H Urine WBC (0-5) HPF 0-2 Ur Epithelial Cells (Negative) HPF Negative Urine Crystals (Negative) HPF Few amorphous Urine Bacteria (Negative) HPF Negative Urine Casts (Negative) LPF 5-10 coarse granular Urine Mucus (Negative) Negative Ur Culture Indicated? No Urine Glucose (Negative) mg/dL Negative COVID-19 Source Range/Units 04/02/21 18:15 WBC (4.4-10.8) 10^3/uL RBC (4.36-5.78) 10^6/uL Hgb (13.5-17.5) g/dL Hct (40.0-50.0) % MCV (80-95) fL MCH (27.0-33.0) pg MCHC (32.0-36.0) % RDW (11.8-14.1) % Plt Count (130-400) 10^3/uL MPV (8.0-11.0) fL Immature Gran % Neutrophils % Lymphocytes % Monocytes % Eosinophils % Basophils % Nucleated RBC % % Absolute Neutrophils (1.2-6.7) 10^3/uL Absolute Lymphocytes (1.2-3.4) 10^3/uL Absolute Monocytes (0.1-0.8) 10^3/uL Absolute Eosinophils (0.0-0.7) 10^3/uL Absolute Basophils (0.0-0.2) 10^3/uL VBG pH (7.31-7.41) VBG pCO2 (41-51) mmHg VBG pO2 mmHg VBG HCO3 (23-28) mmol/L VBG Total CO2 (24-29) mmol/L VBG O2 Saturation % VBG Base Excess (-2-3) mmol/L VBG Lactate (0.6-1.4) mmol/L Sodium (136-145) mmol/L Potassium (3.5-5.1) mmol/L Chloride (98-107) mmol/L Carbon Dioxide (21.0-32.0) mmol/L Anion Gap (3-11) mmol/L BUN (7-18) mg/dL Creatinine (0.70-1.30) mg/dL Estimated GFR/1.73 m2 (mL/min/1.73m2) Glucose (74-106) mg/dL Calcium (8.5-10.1) mg/dL Magnesium (1.8-2.4) mg/dL Total Bilirubin (0.2-1.0) mg/dL AST (15-37) U/L ALT (16-63) U/L Alkaline Phosphatase (46-116) U/L Ammonia (11-32) umol/L Creatine Kinase (39-308) U/L Troponin I (<0.06) ng/mL Total Protein (6.4-8.2) g/dL Albumin (3.4-5.0) g/dL Urine Color (Yellow) Urine Clarity (Clear) Urine pH (5-8) Ur Specific [place] (1.005-1.025) Urine Protein (Negative) mg/dL Urine Ketones (Negative) mg/dL Urine Blood (Negative) Urine Nitrite (Negative) Urine Bilirubin (Negative) Urine Urobilinogen (Up TO 0.2) EU/dL Ur Leukocyte Esterase (Negative) Urine RBC (0-2) HPF Urine WBC (0-5) HPF Ur Epithelial Cells (Negative) HPF Urine Crystals (Negative) HPF Urine Bacteria (Negative) HPF Urine Casts (Negative) LPF Urine Mucus (Negative) Ur Culture Indicated? Urine Glucose (Negative) mg/dL COVID-19 Source Nasal/nares HPI <GAURANG Sweeney - Last Filed: 04/03/21 16:47> General Mode of arrival: ambulatory. Date/Time Provider Initiated Documentation: 04/02/21 11:56. Limitations to Documentation: no limitations. Information obtained by: patient. HPI Narrative: This 61-year-old gentleman presents with weakness, lightheadedness, right upper quadrant pain. Denies any chest pain or shortness of breath. Denies any falls or injuries. Has not been able to get around the chest secondary to weakness reportedly. Denies alcohol consumption. Denies falls or injuries. States he was in the hospital approximately 3 weeks ago and left AGAINST MEDICAL ADVICE. Denies prior history of cancer. Denies nausea or vomiting. Denies any diarrhea. Denies any new medications. Related Data Home Medications Medication Instructions Recorded Confirmed omeprazole 20 mg PO BID 01/04/13 04/02/21 sildenafil [Viagra] 100 mg PO PRN PRN 05/12/13 04/02/21 lisinopril 20 mg PO DAILY 08/16/13 04/02/21 aspirin [Aspir-81] 81 mg PO DAILY 09/18/14 04/02/21 hydromorphone [Dilaudid] 4 mg PO Q4H PRN PRN 02/17/15 04/02/21 pregabalin [Lyrica] 100 mg PO DAILY 06/23/15 04/02/21 docusate sodium [Stool Softener] 250 mg PO BID 05/29/17 04/02/21 olanzapine [Zyprexa] 5 mg PO DAILY 05/29/17 04/02/21 simvastatin 20 mg PO QPM 05/29/17 04/02/21 doxycycline hyclate [Doryx] 100 mg PO DAILY 10/12/17 03/01/21 hydroxyzine HCl 25 mg PO TID 08/24/18 04/02/21 Allergies Allergy/AdvReac Type Severity Reaction Status Date / Time morphine AdvReac Severe Psychosis Unverified 04/02/21 11:51 codeine [Codeine] AdvReac Intermediate Nausea Unverified 04/02/21 11:51 gabapentin AdvReac Mild dries his Unverified 04/02/21 11:51 eyes and mouth too much General Stated Complaint: GenMedical GIANFRANCO: 3 Review of Systems <GAURANG Sweeney - Last Filed: 04/03/21 16:47> Narrative: Review of systems obtained x7 aside from where indicated in [facility] <GAURANG Sweeney - Last Filed: 04/03/21 16:47> Medical History (Updated 04/03/21 @ 14:33 by Elva Gonzalez NP) Acne Anxiety Fracture of left leg High cholesterol Hip fracture Hip fracture, left Hypertension Mood changes Osteopenia Wrist fracture, closed Wrist fracture, left 2013 Surgical History History of appendectomy History of hernia repair Hx of tonsillectomy Social History Smoking/Tobacco Use Status: Former Tobacco Use Smoking risk assessment performed?: Yes Alcohol Intake: never Drug use: Never Substance use type: does not use Do you feel safe at home: Yes Do you feel safe in your relationship?: Yes Exam <GAURANG Sweeney - Last Filed: 04/03/21 16:47> Const General: cooperative and ill appearing Orientation: alert HENMT Other: moist mucous membranes Eyes Pupils: PERRL Chest Chest: normal inspection of the chest Resp Effort & Inspection: normal respiratory effort and able to speak in complete sentences Cardio Rate: tachycardic Rhythm: regular rhythm GI Other: Right upper quadrant abdominal tenderness and hepatomegaly, no rebounding and guarding Skin General skin exam: no rashes or lesions noted Other: pale Neuro General: patient alert Cranial Nerves: CN's II-XI intact bilaterally and PERRL Cognition: normal cognition Speech: other (slowed speech) Extrem General: normal to inspection Other: No peripheral edema, distal pulses intact Course <GAURANG Sweeney - Last Filed: 04/03/21 16:47> Vital Signs Vital signs: Vital Signs Temperature 36.4 C L 04/02/21 11:47 Pulse 121 H 04/02/21 11:47 Respiratory Rate 20 04/02/21 11:47 Blood Pressure 119/75 04/02/21 11:47 Pulse Oximetry 98 04/02/21 11:47 Temperature 36.4 C L 04/02/21 11:47 Temperature Source Skin 04/02/21 11:47 Pulse 98 H 04/02/21 13:45 Pulse 116 H 04/02/21 13:50 Respiratory Rate 19 04/02/21 13:50 Respiratory Effort Non-Labored 04/02/21 12:54 Respiratory Depth Normal 04/02/21 12:54 Respiratory Pattern Normal 04/02/21 12:54 Blood Pressure 106/80 04/02/21 13:45 Blood Pressure Mean 86 04/02/21 13:45 Blood Pressure Position Sitting 04/02/21 11:47 Pulse Oximetry 98 04/02/21 13:50 Oxygen Delivery Method Room Air 04/02/21 11:47 Oxygen Flow Rate 0 04/02/21 11:47 Pain Level 8 04/02/21 11:47 Lab/Test Results Lab/Test Results: 04/02/21 13:46 Blood Blood Culture - Pending 04/02/21 12:45 Blood Blood Culture - Pending Laboratory Tests Range/Units 04/02/21 04/02/21 04/02/21 12:45 12:45 12:45 WBC (4.4-10.8) 10^3/uL 11.44 H RBC (4.36-5.78) 10^6/uL 5.57 Hgb (13.5-17.5) g/dL 14.2 Hct (40.0-50.0) % 43.7 MCV (80-95) fL 78.5 L MCH (27.0-33.0) pg 25.5 L MCHC (32.0-36.0) % 32.5 RDW (11.8-14.1) % 15.6 H Plt Count (130-400) 10^3/uL 123 L MPV (8.0-11.0) fL 9.1 Immature Gran % 0.5 Neutrophils % 83.4 Lymphocytes % 9.1 Monocytes % 6.9 Eosinophils % 0.0 Basophils % 0.1 Nucleated RBC % % 0 Absolute Neutrophils (1.2-6.7) 10^3/uL 9.54 H Absolute Lymphocytes (1.2-3.4) 10^3/uL 1.04 L Absolute Monocytes (0.1-0.8) 10^3/uL 0.79 Absolute Eosinophils (0.0-0.7) 10^3/uL 0.00 Absolute Basophils (0.0-0.2) 10^3/uL 0.01 VBG pH (7.31-7.41) VBG pCO2 (41-51) mmHg VBG pO2 mmHg VBG HCO3 (23-28) mmol/L VBG Total CO2 (24-29) mmol/L VBG O2 Saturation % VBG Base Excess (-2-3) mmol/L VBG Lactate (0.6-1.4) mmol/L 3.7 H* Sodium (136-145) mmol/L 130 L Potassium (3.5-5.1) mmol/L 5.1 Chloride (98-107) mmol/L 96 L Carbon Dioxide (21.0-32.0) mmol/L 20.4 L Anion Gap (3-11) mmol/L 13.6 H BUN (7-18) mg/dL 88 H* Creatinine (0.70-1.30) mg/dL 2.6 H Estimated GFR/1.73 m2 (mL/min/1.73m2) 25.05 Glucose (74-106) mg/dL 180 H Calcium (8.5-10.1) mg/dL 11.1 H Magnesium (1.8-2.4) mg/dL Total Bilirubin (0.2-1.0) mg/dL 1.1 H AST (15-37) U/L 198 H ALT (16-63) U/L 25 Alkaline Phosphatase (46-116) U/L 243 H Ammonia (11-32) umol/L Troponin I (<0.06) ng/mL Total Protein (6.4-8.2) g/dL 9.3 H Albumin (3.4-5.0) g/dL 3.0 L Range/Units 04/02/21 04/02/21 04/02/21 12:45 12:45 12:45 WBC (4.4-10.8) 10^3/uL RBC (4.36-5.78) 10^6/uL Hgb (13.5-17.5) g/dL Hct (40.0-50.0) % MCV (80-95) fL MCH (27.0-33.0) pg MCHC (32.0-36.0) % RDW (11.8-14.1) % Plt Count (130-400) 10^3/uL MPV (8.0-11.0) fL Immature Gran % Neutrophils % Lymphocytes % Monocytes % Eosinophils % Basophils % Nucleated RBC % % Absolute Neutrophils (1.2-6.7) 10^3/uL Absolute Lymphocytes (1.2-3.4) 10^3/uL Absolute Monocytes (0.1-0.8) 10^3/uL Absolute Eosinophils (0.0-0.7) 10^3/uL Absolute Basophils (0.0-0.2) 10^3/uL VBG pH (7.31-7.41) 7.40 VBG pCO2 (41-51) mmHg 33 L VBG pO2 mmHg 42 VBG HCO3 (23-28) mmol/L 20 L VBG Total CO2 (24-29) mmol/L 18 L VBG O2 Saturation % 76 VBG Base Excess (-2-3) mmol/L -5 L VBG Lactate (0.6-1.4) mmol/L Sodium (136-145) mmol/L Potassium (3.5-5.1) mmol/L Chloride (98-107) mmol/L Carbon Dioxide (21.0-32.0) mmol/L Anion Gap (3-11) mmol/L BUN (7-18) mg/dL Creatinine (0.70-1.30) mg/dL Estimated GFR/1.73 m2 (mL/min/1.73m2) Glucose (74-106) mg/dL Calcium (8.5-10.1) mg/dL Magnesium (1.8-2.4) mg/dL 3.0 H Total Bilirubin (0.2-1.0) mg/dL AST (15-37) U/L ALT (16-63) U/L Alkaline Phosphatase (46-116) U/L Ammonia (11-32) umol/L Troponin I (<0.06) ng/mL < 0.05 Total Protein (6.4-8.2) g/dL Albumin (3.4-5.0) g/dL Range/Units 04/02/21 13:46 WBC (4.4-10.8) 10^3/uL RBC (4.36-5.78) 10^6/uL Hgb (13.5-17.5) g/dL Hct (40.0-50.0) % MCV (80-95) fL MCH (27.0-33.0) pg MCHC (32.0-36.0) % RDW (11.8-14.1) % Plt Count (130-400) 10^3/uL MPV (8.0-11.0) fL Immature Gran % Neutrophils % Lymphocytes % Monocytes % Eosinophils % Basophils % Nucleated RBC % % Absolute Neutrophils (1.2-6.7) 10^3/uL Absolute Lymphocytes (1.2-3.4) 10^3/uL Absolute Monocytes (0.1-0.8) 10^3/uL Absolute Eosinophils (0.0-0.7) 10^3/uL Absolute Basophils (0.0-0.2) 10^3/uL VBG pH (7.31-7.41) VBG pCO2 (41-51) mmHg VBG pO2 mmHg VBG HCO3 (23-28) mmol/L VBG Total CO2 (24-29) mmol/L VBG O2 Saturation % VBG Base Excess (-2-3) mmol/L VBG Lactate (0.6-1.4) mmol/L Sodium (136-145) mmol/L Potassium (3.5-5.1) mmol/L Chloride (98-107) mmol/L Carbon Dioxide (21.0-32.0) mmol/L Anion Gap (3-11) mmol/L BUN (7-18) mg/dL Creatinine (0.70-1.30) mg/dL Estimated GFR/1.73 m2 (mL/min/1.73m2) Glucose (74-106) mg/dL Calcium (8.5-10.1) mg/dL Magnesium (1.8-2.4) mg/dL Total Bilirubin (0.2-1.0) mg/dL AST (15-37) U/L ALT (16-63) U/L Alkaline Phosphatase (46-116) U/L Ammonia (11-32) umol/L 25 Troponin I (<0.06) ng/mL Total Protein (6.4-8.2) g/dL Albumin (3.4-5.0) g/dL Sign Out <GAURANG Sweeney - Last Filed: 04/03/21 16:47> Sign Out Data: Sign Out Comment: pending head ct and disposition Last updated by Brandi Gotti PA at 04/02/21 16:05
[2021-04-02 14:07] LABS: Creatine Kinase 31 U/L (39-308)
--- NOTE | 2021-04-02 14:25 | DI.RAD_ITS ---
Exam(s) XR CHEST 2V PA LATERAL EXAM: XR CHEST 2V PA LATERAL CLINICAL HISTORY: weakness TECHNIQUE: 2D digital imaging was performed. COMPARISON: CR XR CHEST 2V PA LATERAL from 03/25/2020 FINDINGS: MEDIASTINUM: Normal. HEART: Normal. PULMONARY VASCULATURE: Normal. LUNGS: No focal consolidation. No evidence of congestive heart failure. PLEURAL SPACE: No pleural effusion or pneumothorax. BONE:Within normal limits for the patient's age. Multiple old left rib fractures. OTHER FINDINGS:Normal. IMPRESSION: No acute pulmonary findings. DATA REPOSITORY: RADIATION DOSE DELIVERED:
[2021-04-02] MEDS: HYDROmorphone 2 MG/ML VIAL 0.5 MG IVP ×3 (14:49→22:14)
[2021-04-02 15:39] LABS: Bilirubin Negative (Negative); Blood Moderate (Negative); Clarity Clear (Clear); Glucose Negative (Negative); Ketones Negative (Negative); Leukocyte Esterase Negative (Negative); Nitrite Negative (Negative); pH 5.5 (5-8)
[2021-04-02 16:06] LABS: RBC >50 HPF (0-2); WBC 0-2 HPF (0-5)
[2021-04-02 16:07] LABS: Bacteria Negative HPF (Negative); C & S Indicated? No; Crystals Few Amorphous HPF (Negative); Epithelial Cells Negative HPF (Negative); Mucus Negative (Negative)
--- NOTE | 2021-04-02 16:25 | DI.CT_ITS ---
Exam(s) CT HEAD WO EXAM: CT HEAD WO CLINICAL HISTORY: slurred speech. TECHNIQUE: Imaging Protocol: Axial computed tomography images with coronal and sagittal reformatted images were created and reviewed COMPARISON: CT HEAD WITHOUT CONTRAST from 05/12/2013 FINDINGS: There is moderate generalized cerebral atrophy. No evidence of acute intracranial hemorrhage, mass effect, or midline shift. 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 The temporal bone structures appear intact. Calvarium: Normal. Visualized Paranasal sinuses/Mastoids: Clear. IMPRESSION: No evidence of acute intracranial process. RADIATION DOSE DELIVERED: 757.51mGy.cm Total DLP 757.51mGy.cm Total DLP DATA REPOSITORY: All CT scans at this facility are submitted to the National Radiology Data Registry (NRDR) Dose Index Registry (DIR) with the [employer] ([employer]). RADIATION OPTIMIZATION: All CT scans at this facility use at least one of these dose optimization te chniques: automated exposure control; mA and/or kV adjustment per patient size (includes targeted exa ms where dose is matched to clinical indication); or iterative reconstruction.
--- NOTE | 2021-04-02 16:37 | DI.VRAD_ITS ---
PROCEDURE INFORMATION: Exam: CT Head Without Contrast Exam date and time: 04/02/2021 3:13 PM Age: 61 years old Clinical indication: Speech disturbance; Slurred speech TECHNIQUE: Imaging protocol: Computed tomography of the head without contrast. Radiation optimization: All CT scans at this facility use at least one of these dose optimization techniques: automated exposure control; mA and/or kV adjustment per patient size (includes targeted exams where dose is matched to clinical indication); or iterative reconstruction. COMPARISON: No relevant prior studies available. FINDINGS: Brain: Normal. No hemorrhage. Unremarkable white matter. No mass effect. Cerebral ventricles: No ventriculomegaly. Paranasal sinuses: Visualized sinuses are unremarkable. No fluid levels. Mastoid air cells: Visualized mastoid air cells are well aerated. Bones/joints: Unremarkable. No acute fracture. Soft tissues: Unremarkable. IMPRESSION: No acute intracranial abnormality. Dictated and Authenticated by: Ken Chung MD. Ordering:ERICK Paz MD
[2021-04-02 18:17] LABS: Source Nasal/Nares
[2021-04-02 19:28] LABS: COVID-19 PCR Negative (Negative)
--- NOTE | 2021-04-02 19:31 | W.PM.HP.N ---
Date of service: 04/02/21 Time of Service: 19:31 Assessment and Plan Assessment and plan (1) Hyponatremia: Status: Acute Assessment and plan: He has mild hyponatremia today. His labs will be rechecked tomorrow. (2) Liver masses: Status: Acute Assessment and plan: This is a new problem of uncertain etiology. It is uncertain when his last colonoscopy was done. There are no noted abnormalities in his chest or head that would indicate metastatic disease from those areas. It is possible he could have a GI malignancy. Further studies will need to be done and if no clear other etiology is found perhaps he will need a liver biopsy. (3) Adrenal mass: Status: Acute Assessment and plan: This is a new problem that was noted last month when he was here. He signed out AGAINST MEDICAL ADVICE at that time. Further studies will need to be done. (4) Azotemia: Status: Acute Assessment and plan: This is new problem from last month. He appears to be dehydrated from his lack of oral intake. He has received intravenous fluids and those will be continued. We will recheck labs tomorrow. His lisinopril will be held. History of Present Illness History of Present Illness Chief Complaint: Weakness, Poor appetite and not feeling well Narrative: This 61-year-old male was referred to emergency department today because of abnormal lab tests. He says he has not felt well for a few weeks but was here 1 month ago with similar complaints. After reflection he realizes he has been sick for a couple months. He thinks he has lost about 38 pounds. He has had some epigastric discomfort which she says is worse when he lays down. He saw the doctor at the [facility] who recommended he come to the emergency department. He says he has felt shaky and has had a very poor appetite and has felt weak. He has not felt well. He had studies done here in early February which showed a mass of his adrenal gland. Follow-up studies were requested. He says he has had colonoscopies as requested. He cannot remember the last one. He currently lives alone. He has a son who lives on the other side of the [facility] and says that he saw him about 2 weeks ago. He says he has no other close family. He did quit smoking about 2 weeks ago and quit drinking alcohol years ago. He has had his 2 coronavirus vaccines. He has not been around anyone else been ill. Review of Systems Constitutional Constitutional: Denies chills, Reports fatigue, Denies fever(s), Denies frequent falls, Reports lethargy, Reports poor appetite and Reports weight loss ENT Ears, Nose, Mouth, and Throat: Denies dysphagia Cardiovascular Cardiovascular: Denies chest pain, Denies edema, Denies leg edema and Denies dyspnea Respiratory Respiratory: Denies dyspnea Gastrointestinal Gastrointestinal: Reports abdominal pain, Denies melena, Denies change in bowel habits, Denies dysphagia, Denies early satiety, Denies heartburn, Denies diarrhea, Denies loose stools, Denies nausea and Denies vomiting Genitourinary Genitourinary: Denies hematuria, Denies urinary hesitancy, Denies urinary incontinence and Denies urinary urgency Neurologic Neurologic: Denies frequent falls Endocrine Endocrine: Reports fatigue [facility] Medical History (Updated 04/02/21 @ 19:42 by Felton Bojorquez MD) Acne Anxiety Fracture of left leg High cholesterol Hip fracture Hip fracture, left Hypertension Mood changes Osteopenia Wrist fracture, closed Wrist fracture, left 2013 Surgical History History of appendectomy History of hernia repair Hx of tonsillectomy Social History Smoking/Tobacco Use Status: Former Tobacco Use Smoking risk assessment performed?: Yes Alcohol Intake: never Drug use: Never Substance use type: does not use Do you feel safe at home: Yes Do you feel safe in your relationship?: Yes Meds Allergies and Home Medications Allergies Allergy/AdvReac Type Severity Reaction Status Date / Time morphine AdvReac Severe Psychosis Unverified 04/02/21 11:51 codeine [Codeine] AdvReac Intermediate Nausea Unverified 04/02/21 11:51 gabapentin AdvReac Mild dries his Unverified 04/02/21 11:51 eyes and mouth too much Home Medications Medication Instructions Recorded Confirmed Type omeprazole 20 mg PO BID 01/04/13 04/02/21 History sildenafil [Viagra] 100 mg PO PRN PRN 05/12/13 04/02/21 History lisinopril 20 mg PO DAILY 08/16/13 04/02/21 History aspirin [Aspir-81] 81 mg PO DAILY 09/18/14 04/02/21 History hydromorphone [Dilaudid] 4 mg PO Q4H PRN PRN 02/17/15 04/02/21 History pregabalin [Lyrica] 100 mg PO DAILY 06/23/15 04/02/21 History docusate sodium [Stool Softener] 250 mg PO BID 05/29/17 04/02/21 History olanzapine [Zyprexa] 5 mg PO DAILY 05/29/17 04/02/21 History simvastatin 20 mg PO QPM 05/29/17 04/02/21 History doxycycline hyclate [Doryx] 100 mg PO DAILY 10/12/17 03/01/21 History hydroxyzine HCl 25 mg PO TID 08/24/18 04/02/21 History Exam Const General: cooperative, comfortable, ill appearing and not lethargic Nutritional Appearance: obese Orientation: alert and oriented x3 [facility] Mouth: oral mucosae normal Other: Mouth is dry. Neck Neck: normal visual inspection and no lymphadenopathy Thyroid: thyroid normal Resp Effort & Inspection: normal respiratory effort Auscultation: clear to auscultation bilaterally Cardio Jugular venous pressure: no JVD Rate: regular rate Heart Sounds: S1 normal, S2 normal, no gallops and no murmurs GI Palpation: hepatomegaly Other: No masses palpable other than enlarged liver in the right upper quadrant. The liver is moderately tender. Skin General skin exam: no rashes or lesions noted, no ecchymosis, no jaundice and no purpura Neuro General: patient alert, patient awake, patient oriented x3 and no focal motor deficits Speech: speech normal Extrem General: normal to inspection and no edema Results Labs Result diagrams: 04/02/21 12:45 04/02/21 12:45 Labs: Laboratory Results - last 24 hr 04/02/21 04/02/21 04/02/21 12:45 12:45 12:45 WBC 11.44 H RBC 5.57 Hgb 14.2 Hct 43.7 MCV 78.5 L MCH 25.5 L MCHC 32.5 RDW 15.6 H Plt Count 123 L MPV 9.1 Immature Gran % 0.5 Neutrophils % 83.4 Lymphocytes % 9.1 Monocytes % 6.9 Eosinophils % 0.0 Basophils % 0.1 Nucleated RBC % 0 Absolute Neutrophils 9.54 H Absolute Lymphocytes 1.04 L Absolute Monocytes 0.79 Absolute Eosinophils 0.00 Absolute Basophils 0.01 VBG pH VBG pCO2 VBG pO2 VBG HCO3 VBG Total CO2 VBG O2 Saturation VBG Base Excess VBG Lactate 3.7 H* Sodium 130 L Potassium 5.1 Chloride 96 L Carbon Dioxide 20.4 L Anion Gap 13.6 H BUN 88 H* Creatinine 2.6 H Estimated GFR/1.73 m2 25.05 Glucose 180 H Calcium 11.1 H Magnesium Total Bilirubin 1.1 H AST 198 H ALT 25 Alkaline Phosphatase 243 H Ammonia Creatine Kinase Troponin I Total Protein 9.3 H Albumin 3.0 L Urine Color Urine Clarity Urine pH Ur Specific [place] Urine Protein Urine Ketones Urine Blood Urine Nitrite Urine Bilirubin Urine Urobilinogen Ur Leukocyte Esterase Urine RBC Urine WBC Ur Epithelial Cells Urine Crystals Urine Bacteria Urine Casts Urine Mucus Ur Culture Indicated? Urine Glucose COVID-19 Source 04/02/21 04/02/21 04/02/21 12:45 12:45 12:45 WBC RBC Hgb Hct MCV MCH MCHC RDW Plt Count MPV Immature Gran % Neutrophils % Lymphocytes % Monocytes % Eosinophils % Basophils % Nucleated RBC % Absolute Neutrophils Absolute Lymphocytes Absolute Monocytes Absolute Eosinophils Absolute Basophils VBG pH 7.40 VBG pCO2 33 L VBG pO2 42 VBG HCO3 20 L VBG Total CO2 18 L VBG O2 Saturation 76 VBG Base Excess -5 L VBG Lactate Sodium Potassium Chloride Carbon Dioxide Anion Gap BUN Creatinine Estimated GFR/1.73 m2 Glucose Calcium Magnesium 3.0 H Total Bilirubin AST ALT Alkaline Phosphatase Ammonia Creatine Kinase Troponin I < 0.05 Total Protein Albumin Urine Color Urine Clarity Urine pH Ur Specific [place] Urine Protein Urine Ketones Urine Blood Urine Nitrite Urine Bilirubin Urine Urobilinogen Ur Leukocyte Esterase Urine RBC Urine WBC Ur Epithelial Cells Urine Crystals Urine Bacteria Urine Casts Urine Mucus Ur Culture Indicated? Urine Glucose COVID-19 Source 04/02/21 04/02/21 04/02/21 13:46 13:46 15:30 WBC RBC Hgb Hct MCV MCH MCHC RDW Plt Count MPV Immature Gran % Neutrophils % Lymphocytes % Monocytes % Eosinophils % Basophils % Nucleated RBC % Absolute Neutrophils Absolute Lymphocytes Absolute Monocytes Absolute Eosinophils Absolute Basophils VBG pH VBG pCO2 VBG pO2 VBG HCO3 VBG Total CO2 VBG O2 Saturation VBG Base Excess VBG Lactate Sodium Potassium Chloride Carbon Dioxide Anion Gap BUN Creatinine Estimated GFR/1.73 m2 Glucose Calcium Magnesium Total Bilirubin AST ALT Alkaline Phosphatase Ammonia 25 Creatine Kinase 31 L Troponin I Total Protein Albumin Urine Color Yellow Urine Clarity Clear Urine pH 5.5 Ur Specific [place] 1.020 Urine Protein 30 H Urine Ketones Negative Urine Blood Moderate H Urine Nitrite Negative Urine Bilirubin Negative Urine Urobilinogen 2.0 H Ur Leukocyte Esterase Negative Urine RBC >50 H Urine WBC 0-2 Ur Epithelial Cells Negative Urine Crystals Few amorphous Urine Bacteria Negative Urine Casts 5-10 coarse granular Urine Mucus Negative Ur Culture Indicated? No Urine Glucose Negative COVID-19 Source 04/02/21 18:15 WBC RBC Hgb Hct MCV MCH MCHC RDW Plt Count MPV Immature Gran % Neutrophils % Lymphocytes % Monocytes % Eosinophils % Basophils % Nucleated RBC % Absolute Neutrophils Absolute Lymphocytes Absolute Monocytes Absolute Eosinophils Absolute Basophils VBG pH VBG pCO2 VBG pO2 VBG HCO3 VBG Total CO2 VBG O2 Saturation VBG Base Excess VBG Lactate Sodium Potassium Chloride Carbon Dioxide Anion Gap BUN Creatinine Estimated GFR/1.73 m2 Glucose Calcium Magnesium Total Bilirubin AST ALT Alkaline Phosphatase Ammonia Creatine Kinase Troponin I Total Protein Albumin Urine Color Urine Clarity Urine pH Ur Specific [place] Urine Protein Urine Ketones Urine Blood Urine Nitrite Urine Bilirubin Urine Urobilinogen Ur Leukocyte Esterase Urine RBC Urine WBC Ur Epithelial Cells Urine Crystals Urine Bacteria Urine Casts Urine Mucus Ur Culture Indicated? Urine Glucose COVID-19 Source Nasal/nares Last Vital Signs Temp 36.4 C L 04/02/21 11:47 Pulse 103 H 04/02/21 19:00 Resp 12 04/02/21 19:01 BP 100/71 04/02/21 19:00 Pulse Ox 100 04/02/21 15:00 COVID-19 Screening Have you, or household traveled for leisure in last 14 days?: Yes Had IN PERSON contact w/suspected or confirmed C-19 person: No
[2021-04-02 20:18] LABS: Lactate 2.1 mmol/L (0.6-1.4)
[2021-04-02] MEDS: Docusate Sodium 100 MG CAP 200 MG PO (22:13)
[2021-04-02] MEDS: hydrOXYzine HCL 25 MG TAB PO (22:13)
[2021-04-02] MEDS: Normal Saline Flush 10 ML SYR IVP (22:14)
[2021-04-02] MEDS: Omeprazole 20 MG CAPCR PO (22:14)
[2021-04-02] MEDS: Normal Saline Flush 10 ML SYR (22:37)
[2021-04-03] MEDS: Normal Saline 1,000 ML 125 ML IV ×3 (01:20→17:40)
[2021-04-03 03:09] VITALS: BP 104/76; PULSE 90; RESP 17; TEMP 36.3; O2SAT 98
[2021-04-03 04:36] VITALS: PULSE 84
[2021-04-03 07:24] LABS: Abs Immature Grans 0.05 10^3/uL (0.0-0.06); Absolute Basophil Count 0.01 10^3/uL (0.0-0.2); Absolute Eosinophil Count 0.03 10^3/uL (0.0-0.7); Absolute Lymphocyte Count 0.78 10^3/uL (1.2-3.4); Basophils % 0.1; Eosinophils % 0.4; HCT 37.3 % (40.0-50.0); HGB 11.7 g/dL (13.5-17.5); Immature Grans % 0.7; Lymphocytes % 10.8; MCH 25.2 pg (27.0-33.0); MCHC 31.4 % (32.0-36.0); MCV 80.4 fL (80-95); MPV 8.9 fL (8.0-11.0); Monocytes % 6.9; Neutrophils % 81.1; Nucleated RBC 0 %; RBC 4.64 10^6/uL (4.36-5.78); RDW 15.9 % (11.8-14.1); RDW-SD 44.9 fL
[2021-04-03 07:28] LABS: Absolute Neutrophil Count 5.84 10^3/uL (1.2-6.7)
[2021-04-03 07:36] LABS: ALT 20 U/L (16-63); AST 194 U/L (15-37); Albumin 2.3 g/dL (3.4-5.0); Alkaline Phosphatase 189 U/L (46-116); Anion Gap 7.5 mmol/L (3-11); BUN 58 mg/dL (7-18); Bilirubin, Total 0.9 mg/dL (0.2-1.0); CO2 22.5 mmol/L (21.0-32.0); CREATININE 1.9 mg/dL (0.70-1.30); Calcium 9.2 mg/dL (8.5-10.1); Chloride 104 mmol/L (98-107); Estimated GFR 35.98 (mL/min/1.73m2); Glucose 144 mg/dL (74-106); Magnesium 2.2 mg/dL (1.8-2.4); Potassium 4.4 mmol/L (3.5-5.1); Sodium 134 mmol/L (136-145); Total Protein 7.2 g/dL (6.4-8.2)
[2021-04-03 07:50] LABS: Platelet Count 93 10^3/uL (130-400)
[2021-04-03 07:51] LABS: Diff Comment Diff Reviewed; RBC Morphology Normal
[2021-04-03] MEDS: hydrOXYzine HCL 25 MG TAB PO ×3 (07:58→21:22)
[2021-04-03] MEDS: OLANZapine 5 MG TAB PO (07:58)
[2021-04-03] MEDS: Omeprazole 20 MG CAPCR PO ×2 (07:58→21:23)
[2021-04-03] MEDS: Aspirin E.C. 81 MG TABEC PO (07:58)
[2021-04-03] MEDS: Pregabalin 50 MG CAP 100 MG PO (07:58)
[2021-04-03 08:00] VITALS: BP 95/69; PULSE 84; RESP 18; TEMP 35.7; O2SAT 94
[2021-04-03] MEDS: Normal Saline Flush 10 ML SYR IVP ×2 (08:05→21:37)
[2021-04-03] MEDS: HYDROmorphone 2 MG/ML VIAL 0.5 MG IVP (08:05)
--- NOTE | 2021-04-03 09:47 | INITIAL_ITS ---
- If Service Date Differs Date of service: 04/03/21 Time of Service: 09:47 Care Management Initial Assess REASON FOR HOSPITALIZATION:: Acute Renal Failure PAST MEDICAL HISTORY/PAST SURGICAL HISTORY:: Acne. Anxiety. Fracture of left leg. High cholesterol. Hip fracture. Hip fracture, left. Hypertension. Mood changes. Osteopenia. Wrist fracture, closed. Wrist fracture, left. 2012. History of appendectomy. History of hernia repair. Hx of tonsillectomy PREVIOUS FUNCTIONAL STATUS/SOCIAL/FAMILY SUPPORTS:: Boogie resides in [facility]. He is and has a son, Tramaine in [place], [place]. He reportedly has end stage metastatic cancer and is rapidly declining in the community. CURRENT FUNCTIONAL STATUS:: Boogie is talking on the phone when CM attempts to meet with him. Per AFFILIATE MARKETING SPECIALIST, he is aware of his prognosis but has not yet notified his family. He will meet with Palliative Care and Hospice to discuss his end of life care and options. ADVANCE DIRECTIVES:: Reports she has document at home. Has patient been provided with info about the portal/API?: Yes Did the patient sign up for the portal?: No CODE STATUS:: Full Code INSURANCE COVERAGE / FINANCIAL ISSUES:: Medicare. Financial Asst 100 CURRENT HOME/COMMUNITY SERVICES/EQUIPMENT:: FWW, glucometer PRIMARY CARE PHYSICIAN:: [facility] POTENTIAL DISCHARGE NEEDS:: Evaluations for increased service supports. Follow up appointments. PATIENT/FAMILY EDUCATION NEEDS:: Review discharge instructions, discuss Ask Me Three. ANTICIPATED BARRIERS TO DISCHARGE:: None identified at this time. TRANSPORTATION:: TBD by disposition. PLAN:: Boogie will meet with Palliative Care to discuss end of life care options and goals of care. CM continues to follow.
--- NOTE | 2021-04-03 10:45 | PT.INIE ---
Date of service: 04/03/21 Time of Service: 10:15 PT Notes Visit Reasons: ACUTE RENAL FAILURE Inpatient Physical Therapy Evaluation Date: April 03, 2021 Referring Doctor: Elva Gonzalez PT Orders: PT CONSULT Precautions: Standard Patient Profile/Admitting Diagnosis: Boogie is a 61 year old male admitted with acute renal failure whom came to the ED secondary to Weakness, Poor appetite and not feeling well over the last few weeks. PMHX: (Updated 04/02/21 @ 19:42 by Felton Bojorquez MD) Acne Anxiety Fracture of left leg High cholesterol Hip fracture Hip fracture, left Hypertension Mood changes Osteopenia Wrist fracture, closed Wrist fracture, left 2013 Surgical History History of appendectomy History of hernia repair Hx of tonsillectomy Social History/Home Situation: Boogie reports that he lives alone in a 1st floor apartment. He does not drive however reports independence with all other ADL's prior to admission. He utilizes a four wheeled walker for all ambulation. He has a close friend that drives him to all of his appts. Current Functional Limitations: global weakness with daily activities Equipment Owned/DME: four wheeled walker Subjective: Boogie is agreeable to PT consult this morning. Notes he received some bad news regarding his testing. He reports his pain is better managed after his medication however is unsure how much he is going to be able to do with PT this morning for is pretty tired. Objective: General Observation: IV L UE, telemetry, significant IR of L LE in supine h/o fracture Mental Status: Alert and oriented x3 Pain: 5/10 ROM: Right Upper Extremity: shoulder flexion 140 degrees, abduction 120 degrees, IR L5, ER 75 degrees, elbow and forearm WFL's Left Upper Extremity: shoulder flexion 150 degrees, abduction 140 degrees, IR L2, ER 60 degrees, elbow and forearm WFL's Right Lower Extremity: hip flexion 105 degrees, IR 20 degrees, ER 40 degrees, knee flexion 110 degrees, extension lacking 5 degrees, DF neutral Left Lower Extremity: hip flexion 105 degrees, ER 40 degrees, IR 40 degrees, knee flexion 110 degrees, extension lacking 10 degrees, DF neutral Strength: Right Upper Extremity: shoulder flexion 3+/5, abduction 4-/5, IR 4/5, ER 3+/5 with scapular substitution and superior migration of humeral head upon resistance, good addiction treatment counselor Left Upper Extremity: shoulder flexion 4/5, abduction 4/5, IR 4+/5, ER 4-5, bicep 4/5, good addiction treatment counselor Right Lower Extremity: hip flexion 4-/5, knee flexion 4-/5, knee extension 4/5, DF 4-/5 Left Lower Extremity: hip flexion 3+/5, knee flexion 4-/5, knee extension 4-/5, DF 4-/5, Patient is able to complete I SLR on left with significant IR Bed Mobility/Transfers: Supine-sit: Supervision Sit-supine: Jeremy of LE Sit-stand: minAx1 with FWW and cueing for proper hand placement Stand-sit: minAx1 with cueing for proper hand placement Gait: Due to noted fatigue completed only 5 steps with use of FWW modAx1. Noted superior migration of R shoulder with heavy reliance of UE and use of FWW. Balance: Static Sitting: Good Dynamic Sitting: Good Static Standing: Fair Dynamic Standing: Poor Special Tests: Mobility Limitations Standardized Measure [facility] AM-PAC 6 clicks Basic Mobility Inpatient Short Form: Raw Score: 17 CMS Score: 50% Informed Consent/Education: Patient instructed in purpose of PT consult and plan of care. Assessment: Patient is a 61 year old male referred to physical therapy services with the diagnosis of acute renal failure. Patient presents with clinical signs and symptoms consistent with diagnosis, as demonstrated by the following impairment level findings: impaired joint mobility, impaired muscle performance, motor function, diminished functional endurance with altered gait and balance. Impairments are contributing to the following functional limitations: decreased functional mobility/endurance, assistance with functional transfers, UE/LE weakness, need of FWW for ambulation, diminished standing balance Patient is assessed as a Moderate [id number] complexity based on the following: History: As Above Examination: As above Presentation: Evolving Decision Making: Moderate Goals: Goals X1 week 1. Supine-Sit supervision 2. Sit-Supine supervision 3. Sit-Stand supervision with FWW 4. Stand-Sit supervision 5. Bed-Chair supervision with FWW 6. Chair-Bed supervision with FWW 7. Gait supervision with FWW 100 ft or greater Plan of Care/Treatment Plan: 1-2x/day, 7 days/week x 1 week. Plan of care has been reviewed with the BANKING SERVICES ADVISOR providing the service under Physical Therapy direction. Initiate Physical Therapy intervention for strengthening, bed mobility, transfers, gait, stairs, balance training, use of assistive device. DISCHARGE RECOMMENDATIONS: Patient awaiting transfer to higher level of care TREATMENT CODE/[place]: [place] [id number] 10:15 30 minutes DEBORA Johansen [facility]
[2021-04-03] MEDS: predniSONE 20 MG TAB 60 MG PO (10:50)
[2021-04-03 11:44] VITALS: BP 105/74; PULSE 74; RESP 18; TEMP 36; O2SAT 100
--- NOTE | 2021-04-03 13:41 | PGE_ITS ---
Date of Service Date of service: 04/03/21 Time of Service: 13:41 Assessment and Plan Assessment and plan (1) Hyponatremia: Start date: 04/03/21 Start time: 14:22 Status: Acute Assessment and plan: Improved from 130 t0 134. Continue with fluids and monitor bmp in am (2) Bone metastasis: Start date: 04/03/21 Start time: 14:26 Status: Acute Assessment and plan: metastatic disease involving the liver, right adrenal gland and right acetabulum. Mildly enlarged lymph nodes in the upper abdomen. He has never been worked up for this he has known about the adrenal mass for some time but never seeked treatment and when last here signed out ama Diluadid po for pain prednisone burst for pain valium for anxiety methocarbamol for muscle relaxant. He is open to palliative and hospice. He wants to be a DNR/DNI. He has stopped smoking recently. Unsure if he will want further work up as he is sure his prognosis is likely poor. (3) Liver masses: Start date: 04/03/21 Start time: 14:24 Status: Acute Assessment and plan: This is a new problem of uncertain etiology. It is uncertain when his last colonoscopy was done. There are no noted abnormalities in his chest or head that would indicate metastatic disease from those areas. It is possible he could have a GI malignancy. Further studies will need to be done and if no clear other etiology is found perhaps he will need a liver biopsy. At this time he know prognosis is poor with bone mets. Palliative and hospice consulted. (4) Adrenal mass: Start date: 04/03/21 Start time: 14:25 Status: Acute Assessment and plan: This is a new problem that was noted last month when he was here. He signed out AGAINST MEDICAL ADVICE at that time. [facility] not know [facility] at the time. He is now telling his family of the findings. (5) Azotemia: Start date: 04/03/21 Start time: 14:28 Status: Acute Assessment and plan: Improving with hydration down to 1.9 from 2.6 continue IVF at 125 repeat bmp in am (6) Cough: Start date: 04/03/21 Start time: 14:33 Status: Acute Assessment and plan: Harsh nonproductive cough, no acute findings on cxray, robitussin with AC for cough, compazine prior to for nausea (7) DVT prophylaxis: Start date: 04/03/21 Start time: 14:31 Status: Acute Assessment and plan: Heparin subcu (8) Discharge planning issues: Start date: 04/03/21 Start time: 14:31 Status: Acute Assessment and plan: I have asked palliative and hospice to meet with patient regarding findings and bone mets. Depending on conversation with patient either home vs placement. discussed with Dr. Spangler. Subjective Subjective Patient reports: other Interval history since last seen: Patient lying in bed on phone. Stops call to talk. Understands that cancer is every where. When asked about getting treated or follow up for this previously he stated I just didn't know what to do. We discussed palliative and hospice. aMdi stated he understood his outcome was not good and that he would want to go on hospice. We discussed if there was any fami ly that could care for him while on hospice, he was not sure at this time as he has not told his family the news. I told him it was ok because I have asked palliative and hospice to come see him and they could discuss with him options at that time. He also had a harsh non productive cough. He stated his pain was controlled at this time. He denies CP, SOB, N/V/D. Exam Const General: cooperative, comfortable, ill appearing and not lethargic Nutritional Appearance: obese Orientation: alert and oriented x3 HENMT Mouth: oral mucosae normal Neck Neck: normal visual inspection and no lymphadenopathy Thyroid: thyroid normal Resp Effort & Inspection: normal respiratory effort Auscultation: clear to auscultation bilaterally Cardio Jugular venous pressure: no JVD Rate: regular rate Heart Sounds: S1 normal, S2 normal, no gallops and no murmurs GI Palpation: hepatomegaly Skin General skin exam: no rashes or lesions noted, no ecchymosis, no jaundice and no purpura Neuro General: patient alert, patient awake, patient oriented x3 and no focal motor deficits Speech: speech normal Extrem General: normal to inspection and no edema Objective Last Vital Signs Temp 36.0 C L 04/03/21 11:44 Pulse 74 04/03/21 11:44 Resp 18 04/03/21 11:44 BP 105/74 04/03/21 11:44 Pulse Ox 100 04/03/21 11:44 Laboratory Results - last 24 hr 04/02/21 04/02/21 04/02/21 13:46 13:46 15:30 WBC RBC Hgb Hct MCV MCH MCHC RDW Plt Count MPV Immature Gran % Neutrophils % Lymphocytes % Monocytes % Eosinophils % Basophils % Nucleated RBC % Absolute Neutrophils Absolute Lymphocytes Absolute Monocytes Absolute Eosinophils Absolute Basophils RBC Morphology VBG Lactate Sodium Potassium Chloride Carbon Dioxide Anion Gap BUN Creatinine Estimated GFR/1.73 m2 Glucose Calcium Magnesium Total Bilirubin AST ALT Alkaline Phosphatase Ammonia 25 Creatine Kinase 31 L Total Protein Albumin Urine Color Yellow Urine Clarity Clear Urine pH 5.5 Ur Specific Lorado 1.020 Urine Protein 30 H Urine Ketones Negative Urine Blood Moderate H Urine Nitrite Negative Urine Bilirubin Negative Urine Urobilinogen 2.0 H Ur Leukocyte Esterase Negative Urine RBC >50 H Urine WBC 0-2 Ur Epithelial Cells Negative Urine Crystals Few amorphous Urine Bacteria Negative Urine Casts 5-10 coarse granular Urine Mucus Negative Ur Culture Indicated? No Urine Glucose Negative COVID-19 Source SARS-CoV-2 (PCR) 04/02/21 04/02/21 04/03/21 18:15 19:55 07:10 WBC RBC Hgb Hct MCV MCH MCHC RDW Plt Count MPV Immature Gran % Neutrophils % Lymphocytes % Monocytes % Eosinophils % Basophils % Nucleated RBC % Absolute Neutrophils Absolute Lymphocytes Absolute Monocytes Absolute Eosinophils Absolute Basophils RBC Morphology VBG Lactate 2.1 H Sodium 134 L Potassium 4.4 Chloride 104 Carbon Dioxide 22.5 Anion Gap 7.5 BUN 58 H D Creatinine 1.9 H D Estimated GFR/1.73 m2 35.98 Glucose 144 H Calcium 9.2 Magnesium 2.2 Total Bilirubin 0.9 AST 194 H ALT 20 Alkaline Phosphatase 189 H Ammonia Creatine Kinase Total Protein 7.2 Albumin 2.3 L Urine Color Urine Clarity Urine pH Ur Specific Lor[place] Urine Protein Urine Ketones Urine Blood Urine Nitrite Urine Bilirubin Urine Urobilinogen Ur Leukocyte Esterase Urine RBC Urine WBC Ur Epithelial Cells Urine Crystals Urine Bacteria Urine Casts Urine Mucus Ur Culture Indicated? Urine Glucose COVID-19 Source Nasal/nares SARS-CoV-2 (PCR) Negative 04/03/21 07:10 WBC 7.20 D RBC 4.64 Hgb 11.7 L D Hct 37.3 L MCV 80.4 MCH 25.2 L MCHC 31.4 L RDW 15.9 H Plt Count 93 L MPV 8.9 Immature Gran % 0.7 Neutrophils % 81.1 Lymphocytes % 10.8 Monocytes % 6.9 Eosinophils % 0.4 Basophils % 0.1 Nucleated RBC % 0 Absolute Neutrophils 5.84 Absolute Lymphocytes 0.78 L Absolute Monocytes 0.50 Absolute Eosinophils 0.03 Absolute Basophils 0.01 RBC Morphology Normal VBG Lactate Sodium Potassium Chloride Carbon Dioxide Anion Gap BUN Creatinine Estimated GFR/1.73 m2 Glucose Calcium Magnesium Total Bilirubin AST ALT Alkaline Phosphatase Ammonia Creatine Kinase Total Protein Albumin Urine Color Urine Clarity Urine pH Ur Specific [place] Urine Protein Urine Ketones Urine Blood Urine Nitrite Urine Bilirubin Urine Urobilinogen Ur Leukocyte Esterase Urine RBC Urine WBC Ur Epithelial Cells Urine Crystals Urine Bacteria Urine Casts Urine Mucus Ur Culture Indicated? Urine Glucose COVID-19 Source SARS-CoV-2 (PCR)
[2021-04-03] MEDS: HYDROmorphone 2 MG TAB 4 MG PO ×2 (14:37→23:46)
[2021-04-03] MEDS: Prochlorperazine 5 MG TAB PO (14:37)
[2021-04-03] MEDS: guaiFENesin/CODEINE PHOSPHATE 10 ML CUP 5 ML PO (15:25)
[2021-04-03] MEDS: Heparin 5,000 UNITS/ML VIAL 5000 UNITS SC ×2 (15:28→23:17)
[2021-04-03] MEDS: Docusate Sodium 100 MG CAP 200 MG PO (21:22)
[2021-04-03] MEDS: diazePAM 5 MG TAB PO (21:28)
[2021-04-03 23:40] VITALS: BP 102/71; PULSE 59; RESP 16; TEMP 35.9; O2SAT 100
[2021-04-04] MEDS: Normal Saline 1,000 ML 125 ML IV (01:33)
[2021-04-04] MEDS: diazePAM 5 MG TAB PO ×2 (04:08→08:23)
[2021-04-04] MEDS: Heparin 5,000 UNITS/ML VIAL 5000 UNITS SC (07:09)
[2021-04-04 07:17] LABS: Anion Gap 8.6 mmol/L (3-11); BUN 40 mg/dL (7-18); CO2 19.4 mmol/L (21.0-32.0); CREATININE 1.4 mg/dL (0.70-1.30); Calcium 8.9 mg/dL (8.5-10.1); Chloride 108 mmol/L (98-107); Estimated GFR 51.18 (mL/min/1.73m2); Glucose 143 mg/dL (74-106); Potassium 4.4 mmol/L (3.5-5.1); Sodium 136 mmol/L (136-145)
[2021-04-04 07:48] LABS: HCT 36.6 % (40.0-50.0); HGB 11.6 g/dL (13.5-17.5); MCH 25.7 pg (27.0-33.0); MCHC 31.7 % (32.0-36.0); MPV 9.3 fL (8.0-11.0); RBC 4.52 10^6/uL (4.36-5.78); RDW 15.9 % (11.8-14.1); RDW-SD 46.5 fL; WBC 6.69 10^3/uL (4.4-10.8)
[2021-04-04 07:50] LABS: Platelet Count 74 10^3/uL (130-400)
[2021-04-04 08:15] VITALS: BP 126/87; PULSE 64; RESP 16; TEMP 35.9; O2SAT 97
[2021-04-04] MEDS: OLANZapine 5 MG TAB PO (08:23)
[2021-04-04] MEDS: hydrOXYzine HCL 25 MG TAB PO (08:23)
[2021-04-04] MEDS: Pregabalin 50 MG CAP 100 MG PO (08:23)
[2021-04-04] MEDS: Aspirin E.C. 81 MG TABEC PO (08:23)
[2021-04-04] MEDS: Omeprazole 20 MG CAPCR PO (08:23)
[2021-04-04] MEDS: predniSONE 20 MG TAB 60 MG PO (08:24)
[2021-04-04] MEDS: HYDROmorphone 2 MG TAB 4 MG PO (09:13)
--- NOTE | 2021-04-04 10:20 | PT.INNT ---
Date of service: 04/04/21 Time of Service: 10:20 PT Notes Visit Reasons: ACUTE RENAL FAILURE Patient declined PT services this am. Did not feel up to it this morning. Will be meeting with his son and case management to discuss palliative care and return home under care of his son upon discharge.
--- NOTE | 2021-04-04 11:15 | DSE_ITS ---
Date of service: 04/04/21 Time of Service: 11:15 DS: Diagnosis Discharge Diagnosis (1) Bone metastasis: Start date: 04/04/21 Start time: 11:24 Status: Acute Asessment and Plan: Patient does not want to pursue treatment of his cancer. He would like to be discharged home with his son and have palliative and hospice meet him at home. I will discharge home with po hydromorphone, valium, nausea medication CM to fax hospice and palliative to meet at house Son will be staying with patient DNR/DNI He was scared to know what was wrong and at this time would rather be comfortable and have better quality of life (2) Hyponatremia: Start date: 04/04/21 Start time: 11:30 Status: Resolved Asessment and Plan: normalized (3) Liver masses: Start date: 04/04/21 Start time: 11:32 Status: Acute Asessment and Plan: found by imaging patient has known about the adrenal mass but did not want to deal with knowing the truth being discharged home as above (4) Adrenal mass: Start date: 04/04/21 Start time: 11:32 Status: Acute Asessment and Plan: as above (5) Azotemia: Start date: 04/04/21 Start time: 11:32 Status: Acute Asessment and Plan: improved. (6) Cough: Start date: 04/04/21 Start time: 11:33 Status: Acute Asessment and Plan: Improved with robitussin ac. discussed with Dr. oh Discharge Plan Disposition Patient Disposition: HOME Condition: Deteriorating Discharge Details Reason For Visit: ACUTE RENAL FAILURE Admit Date/Time: 04/02/21 17:57 Admit Provider: Felton Bojorquez Attending Provider: Felton Bojorquez Primary Care Provider: [facility] Hospital Course Hospital Course: This 61-year-old male was referred to emergency department on day of admission because of abnormal lab tests. He says he had not felt well for a few weeks but was here 1 month ago with similar complaints. After reflection he realized he had been sick for a couple months. He thinks he has lost about 38 pounds. He has had some epigastric discomfort which he says is worse when he lays down. He saw the doctor at the [facility] who recommended he come to the emergency department. He says he has felt shaky and has had a very poor appetite and had felt weak. He has not felt well. Studies done here in early February showed a mass of his adrenal gland. Follow-up studies were requested. However when he went to the [facility] he stated that he could not face knowing what the truth was and he did not want to get the studies done. On admission creatinine was 2.6, BUN 88. He was started on IVF. Imaging revealed metastatic disease involving the liver, right adrenal gland and right acetuabulum, mildly enlarged lymph nodes in the upper abd. Head CT negative. Initially when speaking to patient about findings he had not spoken to his family he was overwhelmed and anxious, valium was ordered to help him. Today he stated after having the valium yesterday he was able to better cope with everything and speak to his family. He was agreeable to meet with palliative and hospice yesterday. Today we spoke about his prognosis and his wishes. I asked him if he wished to seek treatment for his cancer and he said no, he did not see the point. If it is already in his bone then he would rather be comfortable. He spoke to his son yesterday, who drove up here today from [place] and said he would stay with him as long as he had to; to take care of him for as long as he needed. Mr. Grove made it clear he just wants to go home and be comfortable at home. He is being discharged home. Palliative and hospice will be set up to meet him at home. He will be with his son. COLST form filled out prior to discharge. 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 At this time dilaudid po is keeping him comfortable, will continue this with steroid burst. Compazine, robitussin for cough, valium and muscle relaxers. Home Meds and New Rx's Prescriptions: New diazepam [Valium] 5 mg Tablet 5 mg PO QID PRN PRNQty: 90 RF: 0 codeine-guaifenesin 10-100 mg/5 mL Liquid 5 ml PO Q6H PRN PRNQty: 100 RF: 0 methocarbamol 750 mg Tablet 1,500 mg PO TID PRN PRNQty: 60 RF: 0 prochlorperazine maleate 5 mg Tablet 5 mg PO Q6H PRN PRNQty: 30 RF: 0 prednisone 20 mg Tablet 60 mg PO DAILY 5 Days Qty: 15 RF: 0 Continued omeprazole 20 MG capsule,delayed release(DR/EC) 20 mg PO BID RF: 0 hydromorphone [Dilaudid] 2 MG tablet 4 mg PO Q4H PRN PRNRF: 0 pregabalin [Lyrica] 50 MG capsule 100 mg PO DAILY RF: 0 hydroxyzine HCl 25 mg Tablet 25 mg PO TID RF: 0 olanzapine [Zyprexa] 5 MG tablet 5 mg PO DAILY RF: 0 docusate sodium [Stool Softener] 250 MG capsule 250 mg PO BID RF: 0 No Action sildenafil [Viagra] 100 MG tablet 100 mg PO PRN PRNRF: 0 lisinopril 5 MG tablet 20 mg PO DAILY RF: 0 aspirin [Aspir-81] 81 MG tablet,delayed release (DR/EC) 81 mg PO DAILY RF: 0 doxycycline hyclate [Doryx] 100 MG tablet,delayed release (DR/EC) 100 mg PO DAILY RF: 0 simvastatin 20 MG tablet 20 mg PO QPM RF: 0 Discharge Instructions Instructions: Hospice Care (GEN), Liver Cancer (DC), Bone Metastasis (DC), Comfort Measures (GEN) Additional Instructions: Palliative and hospice should meet you at home tomorrow if not call our care management team. You can take your regular medications or not it is your choice for comfort Take pain medication as needed for pain, valium as needed for anxiety You may eat what you want when you want Stand Alone Forms: Nursing Discharge Form [facility] - (we will call you with an appt tomorrow) Activity:: Activity as Tolerated Equipment/Supplies:: No Equipment Needed Diet:: As Tolerated Discharge Orders Discharge Orders: Discharge Order (Routine); Ordered 04/04/21 Ordered By: Elva Gonzalez DS: Summary Time Spent with Patient providing and/or coordinating discharge services: Greater than 30 minutes Status at Discharge Functional status at discharge: independent ambulation Overall status at discharge: patient is not back to baseline Mental Status: mental status grossly normal Speech and Movement: speech and movement normal Mood: congruent mood Affect: normal affect Exam Const General: cooperative, comfortable, ill appearing and not lethargic Nutritional Appearance: obese Orientation: alert and oriented x3 HENMT Mouth: oral mucosae normal Neck Neck: normal visual inspection and no lymphadenopathy Thyroid: thyroid normal Resp Effort & Inspection: normal respiratory effort Auscultation: clear to auscultation bilaterally Cardio Jugular venous pressure: no JVD Rate: regular rate Heart Sounds: S1 normal, S2 normal, no gallops and no murmurs GI Palpation: hepatomegaly Skin General skin exam: no rashes or lesions noted, no ecchymosis, no jaundice and no purpura Neuro General: patient alert, patient awake, patient oriented x3 and no focal motor deficits Speech: speech normal Extrem General: normal to inspection and no edema Psych Mental Status: mental status grossly normal Speech and Movement: speech and movement normal Mood: congruent mood Affect: normal affect DS: Data Vitals/I&O Vitals and I&O: Vital Signs Temperature 35.9 C L 04/04/21 08:15 Temperature Source Skin 04/04/21 08:15 Pulse 64 04/04/21 08:15 Pulse Rhythm Regular 04/04/21 08:25 Pulse 99 H 04/02/21 19:01 Respiratory Rate 16 04/04/21 08:15 Respiratory Effort Non-Labored 04/04/21 08:25 Respiratory Depth Normal 04/04/21 08:25 Respiratory Pattern Normal 04/04/21 08:25 Blood Pressure 126/87 04/04/21 08:15 Blood Pressure Mean 77 04/02/21 19:00 Blood Pressure Position Sitting 04/02/21 11:47 Pulse Oximetry 97 04/04/21 08:15 Oxygen Delivery Method Room Air 04/04/21 08:15 Oxygen Flow Rate 0 04/04/21 08:15 Pain Level 7 04/04/21 09:13 Comment 04/03/21 08:00 Intake & Output 04/03/21 04/03/21 04/04/21 11:59 23:59 11:59 Intake Total 1010 / 0 1130 / 0 1984.417 / 1984.417 Output Total 1200 / 2099 900 / 2100 950 / 950 Balance -190 / 40 230 / 40 1035.417 / 1035.417 Weight 90.4 kg Intake: IV 1009.417 / 1984.417 Oral 120 / 120 Output: Urine 1200 / 2099 900 / 2100 950 / 950 Other: Urine Color Dark Cailin Yellow Yellow Light Cailin Urine Appearance Clear Clear Urine Odor Normal None Stool Size Moderate Stool Characteristics Soft Brown Voiding Methods Bedside Commode Urinal Urinal Data Completed and Pending Completed studies during hospitalization [Text1]: Exam(s) a CT:CT abdomen & pelvis wo Exam(s) CT ABDOMEN PELVIS WO EXAM: CT ABDOMEN PELVIS WO CLINICAL HISTORY: RUQ pain. TECHNIQUE: Imaging Protocol: Axial computed tomography images with coronal and sagittal reformatted images were created and reviewed. COMPARISON: CT CT CHEST PE CTA from 03/01/2021 FINDINGS: ABDOMEN: Lung Bases: Normal where visualized. Liver: Normal density. There are multiple hypodense masses within the liver most suspicious for hepatic metastatic disease. Gallbladder and biliary tract: There is a question of layering debris within the gallbladder which may represent sludge or stones. Pancreas: Normal density, no abnormal calcifications or inflammatory process. Spleen: Normal. Kidneys: Normal size, contour and axis.No radiodense stones or obstructive uropathy. No masses seen. Adrenal glands: There is a 3.7 x 2.6 cm right adrenal mass. There is a 1 cm nodule in the left adrenal gland. Lymph nodes: Mildly enlarged lymph nodes are seen in the upper abdomen. Abdominal Aorta: Abdominal portion non-dilated. Atherosclerosis. PELVIS: Bladder:Portions of the urinary bladder obscured by the patient's left total hip replacement. Prostate gland appears enlarged and impinges upon the base of the urinary bladder. A bladder mass cannot be excluded. This area is not well visualized due to the artifact. Bowel: No obstruction or bowel wall thickening. No evidence of appendicitis. The stomach is not well distended. Peritoneal cavity: No ascites, collection or mesenteric inflammatory response. No free air. Reproductive organs: Please see the above section on the bladder. Bones: Old bilateral rib fractures. Posterior spinal surgery from L3 through S1. The patient has a left total hip replacement. Degenerative changes are seen in the lumbar spine and the right hip. There is a lytic lesion involving the right acetabulum consistent with metastatic disease. Soft Tissues: Within normal limits. There is fatty atrophy of the left iliopsoas muscle. IMPRESSION: 1. Findings consistent with metastatic disease involving the liver, right adrenal gland and right acetabulum. Mildly enlarged lymph nodes in the upper abdomen. 2. Poor visualization of the urinary bladder secondary to the patient's left to anil hip replacement. 3. No acute abdominal or pelvic process. 4. Layering debris in the gallbladder which may represent stones or sludge. 5. Results of this exam have been verbally communicated with provider. Exam(s) XR CHEST 2V PA LATERAL EXAM: XR CHEST 2V PA LATERAL CLINICAL HISTORY: weakness TECHNIQUE: 2D digital imaging was performed. COMPARISON: CR XR CHEST 2V PA LATERAL from 03/25/2020 FINDINGS: MEDIASTINUM: Normal. HEART: Normal. PULMONARY VASCULATURE: Normal. LUNGS: No focal consolidation. No evidence of congestive heart failure. PLEURAL SPACE: No pleural effusion or pneumothorax. BONE:Within normal limits for the patient's age. Multiple old left rib fractures. OTHER FINDINGS:Normal. IMPRESSION: No acute pulmonary findings. Exam(s) a CT:CT head wo Exam(s) CT HEAD WO EXAM: CT HEAD WO CLINICAL HISTORY: slurred speech. TECHNIQUE: Imaging Protocol: Axial computed tomography images with coronal and sagittal reformatted images were created and reviewed COMPARISON: CT HEAD WITHOUT CONTRAST from 05/12/2013 FINDINGS: There is moderate generalized cerebral atrophy. No evidence of acute intracranial hemorrhage, mass effect, or midline shift. 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 The temporal bone structures appear intact. Calvarium: Normal. Visualized Paranasal sinuses/Mastoids: Clear. IMPRESSION: No evidence of acute intracranial process. Exam(s) PROCEDURE INFORMATION: Exam: CT Head Without Contrast Exam date and time: 04/02/2021 3:13 PM Age: 61 years old Clinical indication: Speech disturbance; Slurred speech TECHNIQUE: Imaging protocol: Computed tomography of the head without contrast. Radiation optimization: All CT scans at this facility use at least one of these dose optimization techniques: automated exposure control; mA and/or kV adjustment per patient size (includes targeted exams where dose is matched to clinical indication); or iterative reconstruction. COMPARISON: No relevant prior studies available. FINDINGS: Brain: Normal. No hemorrhage. Unremarkable white matter. No mass effect. Cerebral ventricles: No ventriculomegaly. Paranasal sinuses: Visualized sinuses are unremarkable. No fluid levels. Mastoid air cells: Visualized mastoid air cells are well aerated. Bones/joints: Unremarkable. No acute fracture. Soft tissues: Unremarkable. IMPRESSION: No acute intracranial abnormality. Labs on day of discharge: Labs from last 24 hours 04/04/21 04/04/21 04/04/21 07:35 06:30 06:30 WBC 6.69 Cancelled RBC 4.52 Cancelled Hgb 11.6 L Cancelled Hct 36.6 L Cancelled MCV 81.0 Cancelled MCH 25.7 L Cancelled MCHC 31.7 L Cancelled RDW 15.9 H Cancelled Plt Count 74 L Cancelled MPV 9.3 Cancelled Sodium 136 Potassium 4.4 Chloride 108 H Carbon Dioxide 19.4 L Anion Gap 8.6 BUN 40 H D Creatinine 1.4 H Estimated GFR/1.73 m2 51.18 Glucose 143 H Calcium 8.9 Preliminary micro results at discharge 04/02/21 13:46 Blood Culture - Preliminary Blood NO GROWTH 24 HOURS 04/02/21 12:45 Blood Culture - Preliminary Blood NO GROWTH 24 HOURS [facility] Medical History Acne Anxiety Fracture of left leg High cholesterol Hip fracture Hip fracture, left Hypertension Mood changes Osteopenia Wrist fracture, closed Wrist fracture, left 2013 Surgical History History of appendectomy History of hernia repair Hx of tonsillectomy Social History Smoking/Tobacco Use Status: Former Tobacco Use Smoking risk assessment performed?: Yes Alcohol Intake: never Drug use: Never Substance use type: does not use Do you feel safe at home: Yes Do you feel safe in your relationship?: Yes
--- NOTE | 2021-04-04 11:25 | PDOC.CMDIS ---
- If Service Date Differs Date of service: 04/04/21 Time of Service: 11:42 LACE Index Scoring Tool - Questions: Length of Stay (in days): 2 Acuity (Admit via E.D.?): Yes Comorbidities: Metastatic Solid Tumor E.D. Visits: 3 - Answers: Total Score: 13 Risk of Readmission: High Risk Care Management Discharge Reason for Hospitalization: Acute Renal Failure Discharge Plan: Boogie will return home with his son, to be admitted to Hospice for end of life care with pain management of metastatic cancer. Discharge plan coordinated per patient's wishes, COLST completed and faxed to [facility] and [facility]. notified Desirae, [facility] Yahaira, Dr. Smith and Keith. Boogie will transport via private vehicle with his son. Patient/Family Education Needs: Review discharge instructions, discuss Ask Me Three. Patient advocated for returning home with his son. He spoke of feeling very blessed when his son told him he wanted to be there for him til the end. He reported valium is really helping him process his prognosis as he was previously feeling that he could not regulate his emotions. He was disappointed his son couldn't see him on arrival (unvaccinated) and wanted to return home with him once he arrived into town. Services Needed at Discharge: Home Health Care Services (Request for Hospice admission. Consults faxed to [facility] and Palliative Care. )
[2021-04-05 11:48] LABS: Hepatitis A Antibody IgM Negative (Negative); Hepatitis B Core Antibody Negative (Negative); Hepatitis B surface Ag Negative (Negative); Hepatitis C Ab w Rflx HCV PCR Reactive (Negative)
--- NOTE | 2021-04-05 18:40 | PT.INDS ---
Date of service: 04/09/21 PT Notes Visit Reasons: ACUTE RENAL FAILURE Physical Therapy Inpatient Discharge Summary Date: April 03, 2021 Dates of Service: 04/03/2021 only This is a clinical summary of care provided for the duration of dates listed above. No charge was made in the completion of this documentation. Referring Doctor: Elva Gonzalez PT Orders: PT CONSULT Precautions: Standard Patient Profile/Admitting Diagnosis: Boogie is a 61 year old male admitted with acute renal failure whom came to the ED secondary to Weakness, Poor appetite and not feeling well over the last few weeks. PMHX: Medical History (Updated 04/02/21 @ 19:42 by Felton Bojorquez MD) Acne Anxiety Fracture of left leg High cholesterol Hip fracture Hip fracture, left Hypertension Mood changes Osteopenia Wrist fracture, closed Wrist fracture, left 2013 Surgical History History of appendectomy History of hernia repair Hx of tonsillectomy Social History/Home Situation: Boogie reports that he lives alone in a 1st floor apartment. He does not drive however reports independence with all other ADL's prior to admission. He utilizes a four wheeled walker for all ambulation. He has a close friend that drives him to all of his appts. Current Functional Limitations: global weakness with daily activities Equipment Owned/DME: four wheeled walker Subjective: NT. See most recent [employer] ANAL[employer]IS LABORATORY ASSISTANT notes. Objective: General Observation: NT. See most recent SEED ANALYSIS LABORATORY ASSISTANT notes. Mental Status: NT. See most recent SEED ANALYSIS LABORATORY ASSISTANT notes. Pain: NT. See most recent SEED ANALYSIS LABORATORY ASSISTANT notes. ROM: Right Upper Extremity: shoulder flexion 140 degrees, abduction 120 degrees, IR L5, ER 75 degrees, elbow and forearm WFL's Left Upper Extremity: shoulder flexion 150 degrees, abduction 140 degrees, IR L2, ER 60 degrees, elbow and forearm WFL's Right Lower Extremity: hip flexion 105 degrees, IR 20 degrees, ER 40 degrees, knee flexion 110 degrees, extension lacking 5 degrees, DF neutral Left Lower Extremity: hip flexion 105 degrees, ER 40 degrees, IR 40 degrees, knee flexion 110 degrees, extension lacking 10 degrees, DF neutral Strength: Right Upper Extremity: shoulder flexion 3+/5, abduction 4-/5, IR 4/5, ER 3+/5 with scapular substitution and superior migration of humeral head upon resistance, good baggage porter Left Upper Extremity: shoulder flexion 4/5, abduction 4/5, IR 4+/5, ER 4-5, bicep 4/5, good baggage porter Right Lower Extremity: hip flexion 4-/5, knee flexion 4-/5, knee extension 4/5, DF 4-/5 Left Lower Extremity: hip flexion 3+/5, knee flexion 4-/5, knee extension 4-/5, DF 4-/5, Patient is able to complete I SLR on left with significant IR Bed Mobility/Transfers: Supine-sit: Supervision Sit-supine: Jeremy of LE Sit-stand: minAx1 with FWW and cueing for proper hand placement Stand-sit: minAx1 with cueing for proper hand placement Gait: Due to noted fatigue completed only 5 steps with use of FWW modAx1. Noted superior migration of R shoulder with heavy reliance of UE and use of FWW. Balance: Static Sitting: Good Dynamic Sitting: Good Static Standing: Fair Dynamic Standing: Poor Assessment: Patient is a 61 year old male referred to physical therapy services with the diagnosis of acute renal failure. Patient presents with clinical signs and symptoms consistent with diagnosis, as demonstrated by the following impairment level findings: impaired joint mobility, impaired muscle performance, motor function, diminished functional endurance with altered gait and balance. Impairments are contributing to the following functional limitations: decreased functional mobility/endurance, assistance with functional transfers, UE/LE weakness, need of FWW for ambulation, diminished standing balance Goals: Goals X1 week 1. Supine-Sit supervision NOT MET 2. Sit-Supine supervision NOT MET 3. Sit-Stand supervision NOT MET 4. Stand-Sit supervision NOT MET 5. Bed-Chair supervision NOT MET 6. Chair-Bed supervision NOT MET 7. Gait supervision with NOT MET DISCHARGE RECOMMENDATIONS: Home with palliative/hospice care. TREATMENT CODE/TIME: AL Thank you for the opportunity to participate in the care of this patient. Carmela Varma PT, DPT, CLT [facility] [place], [place]
[2021-04-07 14:26] LABS: HCV RNA Qualitative Undetected (Undetected)
== END 2021-04-04 13:05 | disposition home or self-care (01) | DRG 683 ==
LOC: ER 19:04 → MS 19:18
PROVIDERS: Nurse Practitioner Family; Physician Assistant; Admitting Provider Family Medicine; Emergency Provider Nurse Practitioner Acute Care; Visit Provider Family Medicine
DX: N17.9 Acute kidney failure, unspecified (principal); E87.1 Hypo-osmolality and hyponatremia; C79.51 Secondary malignant neoplasm of bone; C78.7 Secondary malignant neoplasm of liver and intrahepatic bile duct; C79.71 Secondary malignant neoplasm of right adrenal gland; Z20.822 Contact with and (suspected) exposure to COVID-19; E86.0 Dehydration; R63.4 Abnormal weight loss; F41.9 Anxiety disorder, unspecified; E78.00 Pure hypercholesterolemia, unspecified; I10 Essential (primary) hypertension; M85.80 Other specified disorders of bone density and structure, unspecified site; Z87.891 Personal history of nicotine dependence; Z66 Do not resuscitate; R05 Cough
CPT/HCPCS: 36415; 80048; 80053; 82550; 82805; 85027; 86704; 86709; 86803; 87040; 87340; 87522; 87635; 93005; 96361; 96365; 96375; 96376; 97162; 99285; 70450; 71046; 74176; 81003; 81015; 82140; 83605; 83735; 84484; 85025; 93010; 99223; 99233; 99239; J1644; J2543; J7512